=== PATIENT | male | born 1975 | race Hispanic/Latino ===

== ENCOUNTER 2025-04-14 16:11 | Observation (INO) | payer BC ==
[~2025-04-14] VITALS: Ht 175.3 cm; Wt 83.6 kg
--- NOTE | 2025-04-14 16:25 | ERN ---
ED Note History of Present Illness Stated Complaint: CONTINUOUS FEVER, DISORIENTED, RT SIDE SKIN BURNIN Chief Complaint: Skin Rash/Abscess Time Seen by MD: 16:12 Dictation: PATIENT IS A 50-YEAR-OLD MALE HERE WITH COMPLAINTS OF HAVING A LOW-GRADE FEVER ONSET SUNDAY WITH ABDOMINAL PAIN. STATES THE PAIN WAS PERIUMBILICAL HE HAD NAUSEA NO VOMITING. NO CHANGE IN URINATION. HE STATES HE IS NOW COMPLAINING OF A BURNING SENSATION TO HIS BILATERAL LOWER EXTREMITIES THAT IS A SENDING UPWARDS. TO THE RIGHT SIDE. STATES HE IS NO LONGER HAVING ANY ABDOMINAL PAIN. STATES HE HAS HAD THREE DIFFERENT MEDICAL VISITS THE 1ST VISIT WAS TO AN URGENT CARE THIS WEEKEND AND WE WILL SWABBED AND TOLD EVERYTHING WAS NEGATIVE. SECOND VISIT A TELE HEALTH VISIT YESTERDAY WHICH WAS NOT CONCLUSIVE. THE 3RD VISIT WAS TO A PRIMARY CARE DOCTOR EARLIER TODAY WHO DID A CBC AND TOLD HIM THAT IT WAS NOT BACTERIAL, THAT IT WAS VIRAL AND IF HE FELT WORSE TO GO TO THE EMERGENCY ROOM. STATES HE HAS HYPERTENSION AND DIABETES STATES HIS A1C IS 5.5. PATIENT DOES STATES THE PHYSICIAN TODAY GAVE HIM A SHOT OF TORADOL FOR THE BURNING WHICH HELPED BRING VERY BRIEFLY Allergies: Coded Allergies: No Known Drug Allergies (Unverified Allergy, Unknown, 04/14/25) Past Medical History Past Medical History: Diabetes-Type II, High Cholesterol Surgical History: None RN Note Reviewed/Agreed w/PFSH: Yes Review of System Dictation CONSTITUTIONAL: NEGATIVE EXCEPT FOR HPI HEAD/FACE: NEGATIVE EXCEPT FOR HPI EENT: NEGATIVE EXCEPT FOR HPI RESPIRATORY: NEGATIVE EXCEPT FOR HPI GASTROINTESTINAL/ABDOMINAL: NEGATIVE EXCEPT FOR HPI GENITOURINARY: NEGATIVE EXCEPT FOR HPI MUSCULOSKELETAL: NEGATIVE EXCEPT FOR HPI INTEGUMENTARY: NEGATIVE EXCEPT FOR HPI BURNING SENSATION TO SKIN BILATERALLY L OWER EXTREMITIES ASCENDING TO THORAX NEUROLOGICAL/PSYCH: NEGATIVE EXCEPT FOR HPI HEMATOLOGIC/LYMPHATIC: NEGATIVE EXCEPT FOR HPI ALL SYSTEMS NEGATIVE, EXCEPT NOTED ABOVE. 13 POINT REVIEW OF SYSTEMS ASSESSED AND ALL NEGATIVE EXCEPT FOR ABOVE. Initial Vital Sign VS Vital Signs Date Time Temp Pulse Resp B/P (MAP) Pulse Ox O2 Delivery O2 Flow Rate FiO2 04/14/25 16:14 97.9 98 16 108/70 100 Room Air 0 04/14/25 17:01 21 Physical Exam Dictation VITAL SIGNS REVIEWED GENERAL APPEARANCE: ALERT, ORIENTED X 3, NO ACUTE DISTRESS, WELL DEVELOPED, NOURISHED. HEAD AND FACE: NON-TRAUMATIC. EYES: PERRL, PINK CONJUNCTIVAS, EYELID NO TRAUMA, ANTERIOR CHAMBER WITH ARCUS SENILIS. EARS: PINNAS INTACT AND NO SIGNS OF TRAUMA OR ERYTHEMA EAR CANALS CLEAR AND NO DISCHARGE TM NO ERYTHEMA NOSE: NO DISCHARGE, NO BLEEDING. OROPHARYNX: MOUTH NORMAL, TONGUE PINK, PHARYNX CLEAR,NO ERYTHEMA, TONSILS NO EXUDATES, NO ABSCESSES NOTED, MUCOUS MEMBRANE MOIST NECK: SUPPLE, NON-TENDER, NO THYROMEGALY, NO MASSES, NO JVD, NO BRUITS BREAST:DEFERRED CHEST:NO TENDERNESS, NO CREPITUS, NO PARADOXICAL MOVEMENT, NO RETRACTIONS LUNGS:CLEAR, WELL-VENTILATED, SYMMETRIC, NO RALES, NO WHEEZING, NO RHONCHI, NO STRIDOR, GOOD BREATH SOUNDS BILATERALLY HEART: REGULAR RATE, REGULAR RHYTHM, NO MURMUR, NO GALLOPS VASCULAR: NO PERIPHERAL EDEMA, ABDOMEN: SOFT, POSITIVE BOWEL SOUNDS, NONDISTENDED, NO GUARDING, NONTENDER, NO REBOUND, NO MASSES NO HEPATOMEGALY, NO SPLENOMEGALY, NO WILLS'S SIGN, NO HERNIAS. RECTAL: DEFERRED GENITAL: DEFERRED NEUROLOGICAL: NORMAL SPEECH, MOTOR FUNCTION INTACT, SENSORY FUNCTION INTACT NIH IS 0. PATIENT HAS INTACT SENSATION AND PROPRIOCEPTION BILATERALLY. STATES HE FEELS LIKE HIS SKIN IS BURNING LIKE A SUNBURN FROM HIS CHEST DOWN. MUSCULOSKELETAL: NECK NONTENDER, FULL RANGE OF MOTION, BACK NONTENDER, FULL RANGE OF MOTION, EXTREMITIES: NONTENDER, FULL RANGE OF MOTION SKIN: COLOR PINK, DRY, NO TURGOR, NO RASH, NO LACERATIONS, NO ABRASIONS, NO CONT USIONS. NO RASHES FOUND LYMPHATIC: DEFERRED Results (Laboratory/Radiology) Laboratory/Radiology Laboratory Tests Test 04/14/25 16:48 04/14/25 16:56 White Blood Count 7.0 K/uL (4.8-10.8) Red Blood Count 3.47 MIL/uL (4.50-6.20) L Hemoglobin 11.0 g/dL (14.0-18.0) L Hematocrit 31.0 % (42-54) L Mean Corpuscular Volume 89.3 fL (79-99) Mean Corpuscular Hemoglobin 31.7 pg (27.0-33.0) Mean Corpuscular Hemoglobin Concent 35.5 g/dL (32.0-36.0) Red Cell Distribution Width 12.3 % (11.0-15.5) Platelet Count 170 K/uL (130-400) Mean Platelet Volume 9.4 fL (7.5-10.5) Immature Granulocyte % (Auto) 0.3 % (0-1) Neutrophils (%) (Auto) 79.6 % (40.0-77.0) H Lymphocytes (%) (Auto) 10.9 % (21.0-51.0) L Monocytes (%) (Auto) 8.8 % (3.0-13.0) Eosinophils (%) (Auto) 0.3 % (0.0-8.0) Basophils (%) (Auto) 0.1 % (0.0-5.0) Neutrophils # (Auto) 5.5 K/uL (1.8-7.7) Lymphocytes # (Auto) 0.8 K/uL (1.0-4.8) L Monocytes # (Auto) 0.6 K/uL (0.1-1.0) Eosinophils # (Auto) 0.02 K/uL (0.00-0.70) Basophils # (Auto) 0.01 K/uL (0.00-0.20) Absolute Immature Granulocyte (auto 0.02 K/uL (0-1) Nucleated Red Blood Cells 0.0 % (0.0-0.19) Sodium Level 136 mmol/L (136-145) Potassium Level 3.6 mmol/L (3.5-5.1) Chloride Level 100 mmol/L (101-111) L Carbon Dioxide Level 29 mmol/L (21-32) Blood Urea Nitrogen 15 mg/dL (7-18) Creatinine 1.0 mg/dL (0.5-1.3) Glomerular Filtration Rate Calc 92 mL/min (>90) Random Glucose 114 mg/dL (70-105) H Lactic Acid Level 1.3 mmol/L (0.8-2.5) Total Calcium 8.5 mg/dL (8.5-10.1) Total Creatine Kinase 674 U/L (21-232) *H C-Reactive Protein, Quantitative 52.50 mg/L (0.5-3.0) H Urine Color LIGHT-YELLOW (YELLOW) Urine Appearance CLEAR (CLEAR) Urine pH 6.0 (5.0-8.0) Urine Specific [place] 1.015 (1.001-1.031) Urine Protein NEGATIVE mg/dL (NEGATIVE) Urine Glucose (UA) NEGATIVE mg/dL (NEGATIVE) Urine Ketones NEGATIVE mg/dL (NEGATIVE) Urine Occult Blood NEGATIVE (NEGATIVE) Urine Nitrate NEGATIVE (NEGATIVE) Urine Bilirubin NEGATIVE mg/dL (NEGATIVE) Urine Urobilinogen 0.2 mg/dL (0.2-1.0) Urine Leukocyte Esterase NEGATIVE Ulices/uL Labs Reviewed?: Yes EKG: (+) NSR EKG Comment: EKG NORMAL SINUS RHYTHM/HEART RATE 85/AXIS NORMAL/NO ECTOPY ED Course ED Course Orders Procedure Category Date Status Time Crp Quantitative LAB 04/14/25 Complete 16:16 Creatine Kinase, Total LAB 04/14/25 Complete 16:16 Cbc With Differential LAB 04/14/25 Complete 16:16 Urinalysis Profile LAB 04/14/25 Complete 16:16 Basic Metabolic Panel LAB 04/14/25 Complete 16:16 Blood Cult JOSE 04/14/25 In Process 16:22 Lactic Acid LAB 04/14/25 Complete 16:22 12 Lead Ekg Tracing- EKG 04/14/25 Complete Technical 16:39 [place] Prov. Neuro CONPHYSVC 04/14/25 Transmitted Consult 16:52 Saline Lock Iv CPOE 04/14/25 Transmitted 17:29 0.9%Nacl 1000ml (Ns PHA 04/14/25 Complete 1000ml) 17:30 Methylprednisolone PHA 04/14/25 Complete Succ 125mg (Solu-Medr 17:30 Febrile Agglutinins LAB 04/14/25 In Process Panel 18:24 Hepatic Function Panel LAB 04/14/25 In Process 19:17 Current Medications Medications (Trade) Dose Ordered Sig/Luis Route PRN Reason Start Time Stop Time Status Last Admin Dose Admin Methylprednisolone Sodium Succinate (Solu-medROL 125MG) 125 mg ONCE ONCE IVP 04/14/25 17:30 04/14/25 17:39 DC 04/14/25 17:41 Sodium Chloride 1,000 ml @ 0 mls/hr ONCE ONCE IV 04/14/25 17:30 04/14/25 17:39 DC 04/14/25 17:41 Vital Signs Date Time Temp Pulse Resp B/P (MAP) Pulse Ox O2 Delivery O2 Flow Rate FiO2 04/14/25 18:28 98.2 72 18 113/68 100 Room Air* 0 21 04/14/25 17:45 97.9 83 18 102/59 100 Room Air* 0 21 04/14/25 17:01 83 18 97/60 98 Room Air* 0 21 04/14/25 16:14 97.9 98 16 108/70 100 Room Air 0 1645/SPOKE WITH REGARDING PATIENT AND FINDINGS OF NEUROLOGIC EXAM. WE WILL FOLLOW UP WITH NEURO SOC FOR FURTHER EVALUATION 1700/SPOKE WITH , TELE NEUROLOGIST. HE WILL SEE THE PATIENT IN APPROXIMATE 10 MINUTES HOWEVER SAYS PATIENT WILL NEED MRI OF THE THORACIC LUMBAR SPINE WITH AND WITHOUT CONTRAST. STATES GUILLAIN-BARRE IS LESS LIKELY WE WILL GIVE US FURTHER INPUT ONCE HE EVALUATES PATIENT. He also states that lumbar puncture would be possibly indicated in the future also place patient on viral medication 1937/spoke with Ale JARAMILLO hospitalist reviewed labs interventions to include my discussion with tele radiologist she agreed to admit patient. Spoke with patient and he agreed to be admitted. Medical Decision Making MDM MDM: Differential diagnosis: Viral syndrome/febrile illness, rhabdomyolysis, ACS/AMI/electrolyte imbalance/dehydration/ Rationale: Tests considered and ordered secondary to shared decision making include: labs, ECG and radiology Previous outside records reviewed: Old ER visits. Risk of complication and/or morbidity or mortality of patient management: Mild Medications-Per medication reconciliation Need for hospitalization: Patient does meet criteria for hospitalization. Patient will need follow up on febrile agglutinins rhabdomyolysis fluid resusci tation possible I&D consultation Need for emergency major/minor surgery: No There are no social concerns with this patient. Prescription drug management Prescriptions will include symptomatic care Patient's prior external medical records from other ER visits were reviewed by me as indicated. Prior testing and results from previous visits were reviewed. Prior tests were taken into account with medical decision making and resource utilization, independent historian/historians were used to obtain complete medical history. I independently interpreted the test that were performed, results were reviewed by me and considered findings on radiology if ordered. Medical management and examination interpretation discussions were had by me with other qualified healthcare professionals as indicated for the patient's care. DX & DISP Disposition: Inpatient Decision to Admit Time: 19:40 Departure Impression: Primary Impression: Acute febrile illness Additional Impressions: Dysesthesia affecting both sides of body, Rhabdomyolysis, Hyperglycemia Condition: Stable Referrals: SELF,REFERRAL (PCP) Time of Disposition: 19:40 I have reviewed the case, and I agree with, Diagnosis and Plan REY ADAMS NP 3, 2025 16:25
--- NOTE | 2025-04-14 16:52 | EKG ---
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
[2025-04-14 17:04] LABS: BASOPHILS # (AUTO) 0.01 K/uL (0.00-0.20); BASOPHILS % (AUTO) 0.1 % (0.0-5.0); EOSINOPHILS # (AUTO) 0.02 K/uL (0.00-0.70); EOSINOPHILS % (AUTO) 0.3 % (0.0-8.0); IMMATURE GRANULOCYTE ABSOLUTE 0.02 K/uL (0-1); LYMPHOCYTES # (AUTO) 0.8 K/uL (1.0-4.8); LYMPHOCYTES % (AUTO) 10.9 % (21.0-51.0); MEAN CORPUSCULAR HEMOGLOBIN 31.7 pg (27.0-33.0); MEAN CORPUSCULAR HGB CONC 35.5 g/dL (32.0-36.0); MEAN CORPUSCULAR VOLUME 89.3 fL (79-99); MONOCYTES # (AUTO) 0.6 K/uL (0.1-1.0); MONOCYTES % (AUTO) 8.8 % (3.0-13.0); NEUTROPHILS # (AUTO) 5.5 K/uL (1.8-7.7); NEUTROPHILS % (AUTO) 79.6 % (40.0-77.0); PLATELET COUNT (AUTO) 170 K/uL (130-400); RED BLOOD CELL COUNT(AUTO) 3.47 MIL/uL (4.50-6.20); RED CELL DISTRIBUTION WIDTH 12.3 % (11.0-15.5)
[2025-04-14 17:09] LABS: POTASSIUM 3.6 mmol/L (3.5-5.1)
[2025-04-14 17:13] LABS: APPEARANCE,URINE CLEAR (CLEAR); BILIRUBIN,URINE NEGATIVE (NEGATIVE); COLOR,URINE LIGHT-YELLOW (YELLOW); GLUCOSE, URINE (UA) NEGATIVE (NEGATIVE); KETONES,URINE NEGATIVE (NEGATIVE); LEUKOCYTE ESTERASE ,URINE NEGATIVE Leu/uL (NEGATIVE); NITRATE,URINE NEGATIVE (NEGATIVE); OCCULT BLOOD,URINE NEGATIVE (NEGATIVE); PROTEIN,URINE NEGATIVE (NEGATIVE); UROBILINOGEN,URINE 0.2 mg/dL (0.2-1.0)
[2025-04-14 17:16] LABS: ADD UA MICROSCOPIC NO
[2025-04-14] MEDS: Solu-medROL 125MG VIAL IVP ONE (17:41)
[2025-04-14] MEDS: 0.9%NACL 1000ML 1,000 ML IV ONE (17:41)
--- NOTE | 2025-04-14 18:32 | BSKYNEURO ---
[facility] Procedure Note [facility] Consult Consult [facility] Note # Demographics Consult Type: General Neurology Patient Location: Emergency Room First Name: JUDY CARTWRIGHT Last Name: JENNIFER Date of : 1975 Age: 50 Gender: Male Facility: [facility] Time of Initial Page (Central Time): 04/14/2025 16:49 Time of Return Call (Central Time): 04/14/2025 16:50 # HPI History: fever, chills, abd pain last week- pain in band around belly to back - starting around bellybutton. then feeling sunburn sensation in abd from nipple line down to thighs. Fevers, burning/numbness feeling.. No incontinence. # Scores Level of Consciousness 1a: [0] = Alert; keenly responsive LOC Questions 1b: [0] = Answers both questions correctly LOC Commands 1c: [0] = Performs both tasks correctly Best Gaze 2: [0] = Normal Visual 3: [0] = No visual loss Facial Palsy 4: [0] = Normal symmetrical movements Motor Arm Left 5a: [0] = No drift Motor Arm Right 5b: [0] = No drift Motor Leg Left 6a: [0] = No drift Motor Leg Right 6b: [0] = No drift Limb Ataxia 7: [0] = Absent Sensory 8: [1] = [id number] sensory loss Best Language 9: [0] = No aphasia Dysarthria 10: [0] = Normal Extinction and Inattention 11: [0] = No abnormality NIHSS Total: 1 # Exam Additional Neurologic Exam: no meningismus full rom in ankles # Assessment Impression: No weakness noted. given fevers and sensory level for numbness would consider roller picker infection or inflammation. acyclovir empiric roller picker coverage for now. MRI C/T/L wwo pending. LP after MRI. COnsider ABX coverage if any worsening although if this were bacterial cause would expect worse exam. # Plan Labs: - TSH Imaging: (urgency: routine): - MRI C spine - MRI T spine - MRI L spine Diagnostic Test: - Lumbar puncture: cell count, protein, glucose, gram stain, and culture Medication: acyclovir 10mg /kg iv tid Other: - If patient has any neurological deterioration please call me back immediately - I have discussed my recommendations with the referring provider # Logistics Attestation of consult completion: The patient is located at: [facility]. Facility staff participated in the visit. I performed this telemedicine visit from my offsite office utilizing interactive 2 way audio and visual telecommunication technology. Total time spent in telemedicine encounter: I spent 21 minutes reviewing clinical data and/or imaging, obtaining history, examining the patient, communicating with the onsite care team, and in preparation of this report. # Demographics First Name: JUDY CARTWRIGHT Last Name: JENNIFER Facility: [facility] Electronically signed at 04/14/2025 18:32 (Central Time) by Cain Gambino MD Neuro Consult Order placed for: Yes ROBERTA GAMBINO MD Apr 14, 2025 18:32
[2025-04-14 19:39] LABS: ALBUMIN 3.5 g/dL (3.5-5.0); BILIRUBIN,DIRECT 0.1 mg/dL (0.0-0.3); BILIRUBIN,TOTAL 0.4 mg/dL (0.2-1.0); TOTAL PROTEIN, SERUM 6.9 g/dL (6.0-8.3)
--- NOTE | 2025-04-14 19:57 | HP ---
[facility] HISTORY AND PHYSICAL Date of Service: Apr 14, 2025 Time of Service: 19:57 Attending/supervising physician: Dr. Appiah and Dr. Richmond Alarcon HISTORY OF PRESENT ILLNESS: Mr. Dsouza is a 50-year-old male with a history of a DM, HTN, and HDL who presented to [facility] for evaluation of low-grade fever, chills, abdominal pain and nausea onset Sunday of last week. The patient reported he had periumbilical abdominal pain, but that has gone away. The pain was spent around the abdomen to the back, starting around the belly button. The patient reported that he is now having burning/sunburn/numbness sensation ascending upward from lower extremity to the abdomen to nipple line. The patient reported he initially was seen at urgent care this weekend, was swab, and was told everything was negative. The 2nd visit was two at tele health visit yesterday which was not conclusive. The 3rd visit was two the primary care doctor earlier today who did a CBC and told him that it was not bacterial, that it was viral, and if he fell worse to go to the emergency room. Patient reported that his PCP today gave him a shot of Toradol for the burning which helped bring very little relief. He reports that his last A1c was 5.5. The patient denied vomiting, incontinence, or changing urination, chest pain, shortness of breath, WBCs WNL. Remarkable lab results: CK 674, C-reactive protein 52.5 Hemoglobin 11.0, hematocrit 31.0, RBC 3.49, neut % 79.6, lymph% 10.9, Lymph # 0.8. Chloride 100, GFR 92, glucose 114, EKG: Sinus rhythm, HR 85 bpm. No checks x-ray, swabs to review. ED administered NS 1 L bolus and Solu-Medrol 125. ED consulted Dr. Pieter Hubbard, neurologist from [facility] neuro consult. Neurology we gave him an NIH of one for mild to moderate sensory loss. Recommendations were given the fever and sensory level of numbness would consider STRATEGY DIRECTOR infection or inflammation. Recommends acyclovir empiric STRATEGY DIRECTOR coverage for now. MRI C/T/L w/wo pending. LP after MRI. Consider antibiotic coverage if any worsening. ED provider request patient be admitted with the diagnosis of acute febrile illness, dysesthesia affecting both sides of the body, rhabdomyolysis, and hyperglycemia. I assessed the patient at bedside in room number ED 13. The was at bedside. The patient's breathing was even, unlabored, in no distress, appeared comfortable. The patient is oriented times four, no neurological deficits noted. The patient reports that he has been over exerting himself with moving things around. He reports that the Solu-Medrol given in ED helped with the symptoms. I informed the patient and significant other of labs, diagnostics, and plan of care. I answered their multiple questions. They verbalized understanding and are in agreement with the plan. Plan and assessment are listed below. REVIEW OF SYSTEMS 12-point ROS reviewed with the patient. All pertinent positives mentioned above. Otherwise negative, noncontributory, non-pertinent. PAST MEDICAL HISTORY: As mentioned above PAST SURGICAL HISTORY: None PAST SOCIAL HISTORY: Denied alcohol, tobacco, illicit drug use. FAMILY HISTORY: Noncontributory Coded Allergies: No Known Drug Allergies (Unverified Allergy, Unknown, 04/14/25) PHYSICAL EXAM GENERAL APPEARANCE: The patient is awake, alert, and oriented, in no acute cardiopulmonary distress. NEUROLOGICAL: Cranial nerves II-XII grossly intact. Motor is 5/5 in bilateral upper and lower extremities proximal to distal. No sensory deficits. HEENT: Face is symmetric. Pupils are equal and reactive. Extraocular movements are intact. NECK: Supple. No JVD. No thyromegaly. No submental, submandibular, pre- /postauricular, occipital or supraclavicular lymphadenopathy. CHEST: Normal chest expansion. No Telemetry. LUNGS: Absence of any rales, rhonchi or any wheezing. CARDIOVASCULAR: Regular. S1 and S2 normal. No appreciable rubs, murmurs or gallops. ABDOMEN: Soft, nontender, and nondistended. There is no rebound, voluntary guarding, or rigidity. : Deferred. No Urena. EXTREMITIES: Non-edematous and not cyanotic. No clubbing. Good capillary refill. SKIN: No skin breakdown. Vital Sign (Last 24 Hours) 04/14/25 19:52 Temp 98.1 Pulse 74 Resp 18 B/P (MAP) 116/75 Pulse Ox 96 O2 Delivery Room Air* O2 Flow Rate 0 FiO2 21 LABS: Laboratory: Test 04/14/25 19:15 04/14/25 16:56 04/14/25 16:48 Range/Units Total Bilirubin 0.4 0.2-1.0 mg/dL Direct Bilirubin 0.1 0.0-0.3 mg/dL Aspartate Amino Transf (AST/SGOT) 33 10-37 U/L Alanine Aminotransferase (ALT/SGPT) 50 12-78 U/L Alkaline Phosphatase 53 50-136 U/L Total Protein 6.9 6.0-8.3 g/dL Albumin 3.5 3.5-5.0 g/dL Urine Color LIGHT-YELLOW YELLOW Urine Appearance CLEAR CLEAR Urine pH 6.0 5.0-8.0 Urine Specific [place] 1.015 1.001-1.031 Urine Protein NEGATIVE NEGATIVE mg/dL Urine Glucose (UA) NEGATIVE NEGATIVE mg/dL Urine Ketones NEGATIVE NEGATIVE mg/dL Urine Occult Blood NEGATIVE NEGATIVE Urine Nitrate NEGATIVE NEGATIVE Urine Bilirubin NEGATIVE NEGATIVE mg/dL Urine Urobilinogen 0.2 0.2-1.0 mg/dL Urine Leukocyte Esterase NEGATIVE NEGATIVE Ulices/uL White Blood Count 7.0 4.8-10.8 K/uL Red Blood Count 3.47 L 4.50-6.20 MIL/uL Hemoglobin 11.0 L 14.0-18.0 g/dL Hematocrit 31.0 L 42-54 % Mean Corpuscular Volume 89.3 79-99 fL Mean Corpuscular Hemoglobin 31.7 27.0-33.0 pg Mean Corpuscular Hemoglobin Concent 35.5 32.0-36.0 g/dL Red Cell Distribution Width 12.3 11.0-15.5 % Platelet Count 170 130-400 K/uL Mean Platelet Volume 9.4 7.5-10.5 fL Immature Granulocyte % (Auto) 0.3 0-1 % Neutrophils (%) (Auto) 79.6 H 40.0-77.0 % Lymphocytes (%) (Auto) 10.9 L 21.0-51.0 % Monocytes (%) (Auto) 8.8 3.0-13.0 % Eosinophils (%) (Auto) 0.3 0.0-8.0 % Basophils (%) (Auto) 0.1 0.0-5.0 % Neutrophils # (Auto) 5.5 1.8-7.7 K/uL Lymphocytes # (Auto) 0.8 L 1.0-4.8 K/uL Monocytes # (Auto) 0.6 0.1-1.0 K/uL Eosinophils # (Auto) 0.02 0.00-0.70 K/uL Basophils # (Auto) 0.01 0.00-0.20 K/uL Absolute Immature Granulocyte (auto 0.02 0-1 K/uL Nucleated Red Blood Cells 0.0 0.0-0.19 % Sodium Level 136 136-145 mmol/L Potassium Level 3.6 3.5-5.1 mmol/L Chloride Level 100 L 101-111 mmol/L Carbon Dioxide Level 29 21-32 mmol/L Blood Urea Nitrogen 15 7-18 mg/dL Creatinine 1.0 0.5-1.3 mg/dL Glomerular Filtration Rate Calc 92 >90 mL/min Random Glucose 114 H 70-105 mg/dL Lactic Acid Level 1.3 0.8-2.5 mmol/L Total Calcium 8.5 8.5-10.1 mg/dL Total Creatine Kinase 674 *H 21-232 U/L C-Reactive Protein, Quantitative 52.50 H 0.5-3.0 mg/L DIAGNOSTICS / RADIOLOGY: [ ] ASSESSMENT: Acute febrile illness, POA, of unknown origin Dysesthesia affecting both sides of body, POA Sensory level of numbness, POA Rhabdomyolysis, POA Elevated neut %, lymph%, Lymph #, POA, rule out bacterial and viral infection, inflammation, blood disorder, autoimmune conditions Elevated C-reactive protein Anemia Hypochloremia Acute kidney injury, GFR 92 Diabetes mellitus with hyperglycemia PLAN: -Admit to medical floor with continuous telemetry monitoring. -Start acyclovir empiric for STRATEGY DIRECTOR coverage for now, as recommended by Tele Neurology -Start doxycycline 100 mg IV b.i.d. empiric coverage. -Start LR at 200 mL an hour. (ED administered 1 L NS) -Start Decadron 4 mg IV daily. (ED administered [id number] mg IV x1 dose) -Atorvastatin 40 mg p.o. daily. -Obtain chest x-ray, CT abdomen and pelvis without contrast, lumbar spine x-ray, influenza, COVID, strep, and MRSA swabs. -MRI C/T/L w/wo pending for am. -Echo complete to be done in am. -Possible LP after MRI as recommended by Neurology, will defer this to a.m. providers. -Neurological checks every 4 hours and as needed. -Consult neurology in a.m. -Consult infection disease in am. -Follow blood cultures, WBCs, and febrile agglutinin panel. -Monitor for any fevers. Antibiotic therapy tailored to culture results. De- escalate antibiotics when appropriate -Blood pressure checks every 4 hours and as needed. -Hold home medication Mounjaro. -Glucometer checks before meals and at bedtime with regular insulin sliding scale as needed -Education on diabetic/low fat diet. -AM labs: CBC, CMP, Mag, phos, TSH, A1c, CK, ERENDIRA, ESR, folic acid, vitamin B12. -Monitor renal and liver function. -Monitor electrolytes and treat accordingly. -GI and DVT prophylaxis: Pepcid IV and Lovenox. -Reconcile home medications once available. -Further orders upon hospitalization course. ADVANCED CARE PLANNING 1. Which of the following were discussed? Hospice Care - No Therapeutic options - Yes Advance Directives - Yes Other discussions - 2. Discussed with who? Patient 3. Voluntary nature of this service was explained to the patient? Yes 4. Amount of time spent - __ Over 45 minutes 5. Reviewed by Physician? (if this service was performed by NPP) Yes ATTESTATION BY PHYSICIAN I have seen and examined the patient. I reviewed the documentation, medical decision making, and treatment plan as noted by the mid-level provider above. I agree with the findings and plan of care. JOHANNE MUKHERJEE [facility] Apr 14, 2025 19:57
[2025-04-14] MEDS ORDERED: acetaMINOPHEN 325 MG TAB PO PRN (20:30)
[2025-04-14] MEDS ORDERED: TEMAZepam 15 MG CAPSULE PO PRN (20:30)
[2025-04-14] MEDS ORDERED: doCUSate SODIUM 100 MG CAP PO PRN (20:30)
[2025-04-14] MEDS ORDERED: acetaMINOPHEN 650 MG SUPPOSITORY RC PRN (20:30)
[2025-04-14] MEDS ORDERED: ondanSETRON 4MG INJ IVP PRN (20:30)
[2025-04-14] MEDS ORDERED: LAbetaLOL 20MG SYG IV PRN (20:30)
[2025-04-14] MEDS ORDERED: LACTULOSE 20 GM/30 ML UDCUP PO PRN (20:30)
[2025-04-14] MEDS: INSULIN humuLIN R 100 UNIT/ML 3ML SQ SCH (21:00)
[2025-04-14 21:04] LABS: AMPHET/METH SCREEN,URINE NEGATIVE (NEGATIVE); BARBITURATE SCREEN, URINE NEGATIVE (NEGATIVE); BENZODIAZEPINES SCREEN,URINE NEGATIVE (NEGATIVE); CANNABINOID SCREEN,URINE NEGATIVE (NEGATIVE); COCAINE SCREEN,URINE NEGATIVE (NEGATIVE); OPIATE SCREEN,URINE NEGATIVE (NEGATIVE); PHENCYCLIDINE SCREEN,URINE NEGATIVE (NEGATIVE)
[2025-04-14] MEDS ORDERED: PHARMACY COMMUNICATION MISC SCH (21:15)
[2025-04-14] MEDS: LACTATED RINGERS 1000ML 1,000 ML IV SCH (22:14)
[2025-04-14] MEDS: NACL 0.9% IV SCH (22:15)
[2025-04-14] MEDS: ACYCLOVIR IV SCH (22:15)
[2025-04-14] MEDS: FAMOTIDINE 20MG TAB PO SCH (22:15)
[2025-04-14] MEDS ORDERED: GLUCAGON 1MG KIT 1 MG ML IM PRN (23:00)
[2025-04-14] MEDS ORDERED: PoTASSium chloRIDE 20MEQ/100ML 100 ML IV PRN (23:00)
[2025-04-14] MEDS ORDERED: PoTASSium chloRIDE 20MEQ ER 20 MEQ ERTAB PO PRN (23:00)
[2025-04-14] MEDS ORDERED: MAGNESIUM 2GM PREMIX 50ML 50 ML IV PRN (23:00)
[2025-04-14] MEDS ORDERED: DEXTROSE 50%-WATER 50 ML DISP.SYRIN IV PRN (23:00)
[2025-04-14] MEDS ORDERED: PoTASSium chl 10% ELIXIR 20MEQ 20 MEQ/15 ML UDCUP PO PRN (23:00)
[2025-04-14 23:08] LABS: SARS-CoV-2, RNA, NAAT NEGATIVE SARS CoV-2 (NEGATIVE)
[2025-04-14 23:14] LABS: INFLUENZA TYPE A Negative For Type A (NEGATIVE); INFLUENZA TYPE B Negative For Type B (NEGATIVE)
[2025-04-14 23:23] LABS: RAPID GROUP A STREP negative (NEGATIVE)
[2025-04-14] MEDS: DOXYCYCLINE 100MG+NS 250ML 250 ML IV SCH (23:42)
--- NOTE | 2025-04-14 23:52 | NUR ---
REPORT GIVEN TO ANH ESPARZA
[2025-04-14] MEDS ORDERED: ATOR20TA65 PO (23:58)
[2025-04-14] MEDS ORDERED: TIRZ10PE SQ (23:58)
[2025-04-15] VITALS (8 sets, daily range): BP systolic 92–115; BP diastolic 58–78; PULSE 66–91; RESP 16–20; TEMP 97.6–98.2; O2SAT 97–99
--- NOTE | 2025-04-15 01:03 | HMCIMG ---
CT ABDOMEN/PELVIS W/O CONTRAST HISTORY: Abdominal pain COMPARISON: None TECHNIQUE: Multiple sequential axial images of the abdomen and pelvis were obtained from the dome of the diaphragm through symphysis pubis. Patient was not given contrast through intravenous route. Oral contrast was not given. FINDINGS: No pleural effusion is seen bilaterally. There is no evidence of parenchymal disease or pulmonary nodule of the visualized lower lungs. Degenerative changes of the thoracolumbar spine are present. There are mild degenerative changes with spondylosis. The heart is not enlarged. The liver, spleen, adrenal glands and pancreas are unremarkable. There is no evidence of hydronephrosis bilaterally. No evidence of renal stone is seen. Fecal material is seen in the colon. There are normal size retroperitoneal and mesenteric lymph nodes. No ascites is seen. No CT evidence of acute appendicitis is seen. Pelvic sidewalls are symmetric bilaterally. Bladder is well distended without wall thickening. IMPRESSION: 1. Fecal material is seen in the colon. Gallbladder is distended. There is clinical suspicion for cholecystitis or cystitis, urinalysis correlation will be helpful. CT was performed with one or more following dose reduction techniques: automated exposure control, adjustment of the mA and kv according to patient's size, or use of a iterative reconstruction technique.
[2025-04-15 04:20] LABS: MEAN CORPUSCULAR HEMOGLOBIN 31.4 pg (27.0-33.0); MEAN CORPUSCULAR HGB CONC 34.6 g/dL (32.0-36.0); MEAN CORPUSCULAR VOLUME 90.9 fL (79-99); RED BLOOD CELL COUNT(AUTO) 3.85 MIL/uL (4.50-6.20); RED CELL DISTRIBUTION WIDTH 12.1 % (11.0-15.5); WHITE BLOOD COUNT (AUTO) 5.7 K/uL (4.8-10.8)
[2025-04-15 05:05] LABS: ALBUMIN 3.4 g/dL (3.5-5.0); BILIRUBIN,TOTAL 0.4 mg/dL (0.2-1.0); CREATININE 0.9 mg/dL (0.5-1.3); MAGNESIUM 2.2 mg/dL (1.80-2.40); PHOSPHORUS 2.5 mg/dL (2.5-4.9); THYROID STIMULATING HORMONE 0.4 uIU/mL (0.36-3.74); TOTAL PROTEIN, SERUM 7.7 g/dL (6.0-8.3)
[2025-04-15 05:30] LABS: HEMOGLOBIN A1C 5.6 % (4.0-6.0)
[2025-04-15] MEDS: ACYCLOVIR IV SCH (05:41)
[2025-04-15] MEDS: NACL 0.9% IV SCH (05:41)
[2025-04-15] MEDS: dexaMETHasone SOD PHOSPHATE 4 MG/ML 1ML VIAL IV SCH (09:27)
[2025-04-15] MEDS: ENOXAPARIN SODIUM 40 MG/0.4 ML SYRINGE SQ SCH (09:28)
--- NOTE | 2025-04-15 11:07 | HMCIMG ---
EXAM: LUMBAR SPINE 2-3VWS REASON: paresthesia, dysesthesia. COMPARISON: None. TECHNIQUE: 3 views of the lumbar spine were obtained. FINDINGS: There is normal appearance of the lumbar vertebral bodies. Disc interspace heights are preserved. Alignment is normal. There are no visible fractures. Soft tissues appear unremarkable. IMPRESSION: 1. Normal lumbar spine.
--- NOTE | 2025-04-15 11:09 | HMCIMG ---
CHEST 1VW REASON: fever on unknown etiology COMPARISON: None. FINDINGS: Single view of the chest was obtained. Lungs are clear. Heart size is normal. There is no pulmonary vascular congestion. Mediastinum and bony thorax appear unremarkable. IMPRESSION: 1. Normal single view chest x-ray.
--- NOTE | 2025-04-15 11:19 | PN ---
[facility] PROGRESS NOTE Date of Service: Apr 15, 2025 Time of Service: 11:09 SUBJECTIVE: Mr. Dsouza is a 50-year-old male with a history of a DM, HTN, and HDL who presented to [facility] for evaluation of low-grade fever, chills, abdominal pain and nausea onset Sunday of last week. The patient reported he had periumbilical abdominal pain, but that has gone away. The pain was spent around the abdomen to the back, starting around the belly button. The patient reported that he is now having burning/sunburn/numbness sensation ascending upward from lower extremity to the abdomen to nipple line. The patient reported he initially was seen at urgent care this weekend, was swab, and was told everything was negative. The 2nd visit was two at tele health visit yesterday which was not conclusive. The 3rd visit was two the primary care doctor earlier today who did a CBC and told him that it was not bacterial, that it was viral, and if he fell worse to go to the emergency room. Patient reported that his PCP gave him a shot of Toradol for the burning which helped bring very little relief. He reported that his last A1c was 5.5. The patient denied vomiting, incontinence, or changing urination, chest pain, shortness of breath, WBCs WNL. Remarkable lab results: CK 674, C-reactive protein 52.5 Hemoglobin 11.0, hematocrit 31.0, RBC 3.49, neut % 79.6, lymph% 10.9, Lymph # 0.8. Chloride 100, GFR 92, glucose 114, EKG: Sinus rhythm, HR 85 bpm. No checks x-ray, swabs to review. ED administered NS 1 L bolus and Solu-Medrol 125. ED consulted Dr. Pieter Hubbard, neurologist from [facility] neuro consult. Neurology gave him an NIH of one for mild to moderate sensory loss. Recommendations were given the fever and sensory level of numbness would consider CONFERENCE AND EVENT ORGANISER infection or inflammation. Recommended acyclovir empiric CONFERENCE AND EVENT ORGANISER coverage for now. MRI C/T/L w/wo pending. LP after MRI. Consider antibiotic coverage if any worsening. ED provider requested patient be admitted with the diagnosis of acute febrile illness, dysesthesia affecting both sides of the body, rhabdomyolysis, and hyperglycemia. The patient evaluated at bedside in room number ED 13. The was at bedside. The patient's breathing was even, unlabored, in no distress, appeared comfortable. The patient oriented times four, no neurological deficits noted. The patient reported that he has been over exerting himself with moving things around. He reported that the Solu-Medrol given in ED helped with the symptoms. / the patient has been seen and examined, comfortably in bed, he is getting IV antibiotics at the time of my visit, alert oriented x3, he denies dizziness, no headache, no blurry vision, not neck pain, denies chest pain, denied shortness a breath, no nausea, no vomiting, no abdominal pain, no diarrhea, no constipation, no melena, no hematochezia, no hematemesis, no hematuria, no dysuria. the patient admitted to the medical floor, hemodynamically stable, afebrile, saturating normal on room air. CBC with normal WBC, hemoglobin 12.1, hematocrit 35.0, platelet count of 175. Sodium level 138, potassium 4.0, BUN of 13, creatinine 0.9, hemoglobin A1c 5.6, lactic acid 1.3, total CK 564. Toxicology screen negative. Urinalysis negative. Serology test negative. CT of the abdomen shows fecal material in the colon, gallbladder distended. Echocardiogram pending. Lumbar x-ray normal. HIDA scan and surgical consultation requested as the patient with distended gallbladder. Infectious disease consulted, we will follow input and recommendation. REVIEW OF SYSTEMS 12-point ROS reviewed with the patient. All pertinent positives mentioned above. Otherwise negative, noncontributory, non-pertinent. PHYSICAL EXAM GENERAL APPEARANCE: The patient is awake, alert, and oriented, in no acute cardiopulmonary distress. NEUROLOGICAL: Cranial nerves II-XII grossly intact. Motor is 5/5 in bilateral upper and lower extremities proximal to distal. No sensory deficits. HEENT: Face is symmetric. Pupils are equal and reactive. Extraocular movements are intact. NECK: Supple. No JVD. No thyromegaly. No submental, submandibular, pre- /postauricular, occipital or supraclavicular lymphadenopathy. CHEST: Normal chest expansion. No Telemetry. LUNGS: Absence of any rales, rhonchi or any wheezing. CARDIOVASCULAR: Regular. S1 and S2 normal. No appreciable rubs, murmurs or gallops. ABDOMEN: Soft, nontender, and nondistended. There is no rebound, voluntary guarding, or rigidity. : Deferred. No Urena. EXTREMITIES: Non-edematous and not cyanotic. No clubbing. Good capillary refill. SKIN: No skin breakdown. Vital Signs (last 8hr) Date Time Temp Pulse Resp B/P (MAP) Pulse Ox O2 Delivery O2 Flow Rate FiO2 04/15/25 07:58 98.2 91 16 108/65 97 Room Air 04/15/25 03:55 97.5 80 20 98/68 99 Room Air LABS: Laboratory: Test 04/15/25 10:34 04/15/25 03:44 04/14/25 22:38 04/14/25 19:15 Range/Units Whole Blood Glucose 125 H 70-110 MG/DL White Blood Count 5.7 4.8-10.8 K/uL Red Blood Count 3.85 L 4.50-6.20 MIL/uL Hemoglobin 12.1 L 14.0-18.0 g/dL Hematocrit 35.0 L 42-54 % Mean Corpuscular Volume 90.9 79-99 fL Mean Corpuscular Hemoglobin 31.4 27.0-33.0 pg Mean Corpuscular Hemoglobin Concent 34.6 32.0-36.0 g/dL Red Cell Distribution Width 12.1 11.0-15.5 % Platelet Count 175 130-400 K/uL Mean Platelet Volume 9.4 7.5-10.5 fL Nucleated Red Blood Cells 0.0 0.0-0.19 % Erythrocyte Sedimentation Rate 60 H 0-20 MM/HR Sodium Level 138 136-145 mmol/L Potassium Level 4.0 3.5-5.1 mmol/L Chloride Level 102 101-111 mmol/L Carbon Dioxide Level 30 21-32 mmol/L Blood Urea Nitrogen 13 7-18 mg/dL Creatinine 0.9 0.5-1.3 mg/dL Glomerular Filtration Rate Calc 104 >90 mL/min Random Glucose 134 H 70-105 mg/dL Hemoglobin A1c 5.6 4.0-6.0 % Estimated Average Glucose (eAG) 114 70-126 mg/dL Total Calcium 8.9 8.5-10.1 mg/dL Phosphorus Level 2.5 2.5-4.9 mg/dL Magnesium Level 2.20 1.80-2.40 mg/dL Total Bilirubin 0.4 0.2-1.0 mg/dL Aspartate Amino Transf (AST/SGOT) 35 10-37 U/L Alanine Aminotransferase (ALT/SGPT) 55 12-78 U/L Alkaline Phosphatase 52 50-136 U/L Total Creatine Kinase 564 *H 21-232 U/L Total Protein 7.7 6.0-8.3 g/dL Albumin 3.4 L 3.5-5.0 g/dL Vitamin B12 Level 1778 H 193-986 pg/mL Folic Acid (LAB) 17.30 2-20 ng/mL Thyroid Stimulating Hormone (TSH) 0.40 0.36-3.74 uIU/mL Influenza Type A Antigen Negative For Type A NEGATIVE Influenza Type B Antigen Negative For Type B NEGATIVE SARS-CoV-2, RNA, NAAT NEGATIVE SARS CoV-2 NEGATIVE Group A Streptococcus Rapid negative NEGATIVE Direct Bilirubin 0.1 0.0-0.3 mg/dL Troponin I High Sensitivity < 4 L 4-75 ng/L Test 04/14/25 16:56 04/14/25 16:48 04/14/25 16:15 Range/Units Urine Color LIGHT-YELLOW YELLOW Urine Appearance CLEAR CLEAR Urine pH 6.0 5.0-8.0 Urine Specific [place] 1.015 1.001-1.031 Urine Protein NEGATIVE NEGATIVE mg/dL Urine Glucose (UA) NEGATIVE NEGATIVE mg/dL Urine Ketones NEGATIVE NEGATIVE mg/dL Urine Occult Blood NEGATIVE NEGATIVE Urine Nitrate NEGATIVE NEGATIVE Urine Bilirubin NEGATIVE NEGATIVE mg/dL Urine Urobilinogen 0.2 0.2-1.0 mg/dL Urine Leukocyte Esterase NEGATIVE NEGATIVE Ulices/uL Urine Opiates Screen NEGATIVE NEGATIVE Urine Barbiturates Screen NEGATIVE NEGATIVE Urine Phencyclidine Screen NEGATIVE NEGATIVE Urine Amphetamines Screen NEGATIVE NEGATIVE Urine Benzodiazepines Screen NEGATIVE NEGATIVE Urine Cocaine Screen NEGATIVE NEGATIVE Urine Marijuana (THC) Screen NEGATIVE NEGATIVE Immature Granulocyte % (Auto) 0.3 0-1 % Neutrophils (%) (Auto) 79.6 H 40.0-77.0 % Lymphocytes (%) (Auto) 10.9 L 21.0-51.0 % Monocytes (%) (Auto) 8.8 3.0-13.0 % Eosinophils (%) (Auto) 0.3 0.0-8.0 % Basophils (%) (Auto) 0.1 0.0-5.0 % Neutrophils # (Auto) 5.5 1.8-7.7 K/uL Lymphocytes # (Auto) 0.8 L 1.0-4.8 K/uL Monocytes # (Auto) 0.6 0.1-1.0 K/uL Eosinophils # (Auto) 0.02 0.00-0.70 K/uL Basophils # (Auto) 0.01 0.00-0.20 K/uL Absolute Immature Granulocyte (auto 0.02 0-1 K/uL Lactic Acid Level 1.3 0.8-2.5 mmol/L C-Reactive Protein, Quantitative 52.50 H 0.5-3.0 mg/L Brucella Total Antibody Agglutin NEGATIVE NEGATIVE Paratyphoid A Antibody NEGATIVE NEGATIVE Paratyphoid B Antibody NEGATIVE NEGATIVE Proteus OX-19 Antibody 1:20 NEGATIVE Typhoid H Antibody NEGATIVE NEGATIVE Typhoid O Antibody NEGATIVE NEGATIVE Current Medications Medications (Trade) Dose Ordered Sig/Luis Route PRN Reason Start Time Stop Time Status Last Admin Dose Admin Acetaminophen (TYLenol 325MG TAB) 650 mg Q6H PRN PO FEVER/MILD PAIN LEVEL 1-3 04/14/25 20:30 05/14/25 20:29 Acetaminophen (TYLenol 650MG SUPPOSITORY) 650 mg Q6H PRN RC FEVER / MILD PAIN 1-3 IF NPO 04/14/25 20:30 05/14/25 20:29 Acyclovir Sodium 840 mg/Sodium Chloride 250 ml @ 250 mls/hr Q8H IV 04/15/25 06:00 05/14/25 21:59 04/15/25 05:41 250 MLS/HR Acyclovir Sodium 850 mg/Sodium Chloride 250 ml @ 250 mls/hr Q8H IV 04/14/25 22:00 04/15/25 05:26 DC 04/14/25 22:15 250 MLS/HR Dexamethasone Sodium Phosphate (dexaMETHasone 4MG/ML 1ML VIAL) 4 mg DAILY IV 04/15/25 09:00 05/15/25 08:59 04/15/25 09:27 4 MG Dextrose (D50w) 50 ml AD PRN IV HYPOGLYCEMIA PROTOCOL 04/14/25 23:00 05/14/25 22:59 Docusate Sodium (COLace 100MG CAP) 100 mg BID PRN PO CONSTIPATION 04/14/25 20:30 05/14/25 20:29 Doxycycline Hyclate 250 ml @ 125 mls/hr Q12H IV 04/14/25 23:00 04/24/25 22:59 04/14/25 23:42 125 MLS/HR Enoxaparin Sodium (Lovenox) 40 mg DAILY SQ 04/15/25 09:00 05/15/25 08:59 04/15/25 09:28 40 MG Famotidine (Pepcid 20mg Tab) 20 mg BID PO 04/14/25 21:00 05/14/25 20:59 04/15/25 09:27 20 MG Glucagon (Glucagon 1mg Kit) 1 mg AD PRN IM HYPOGLYCEMIA PROTOCOL 04/14/25 23:00 05/14/25 22:59 Insulin Human Regular (humuLIN R 100 UNIT/ML 3ML) INSULIN SLIDING SCAL... ACHS SQ 04/14/25 21:00 05/14/25 20:59 Labetalol HCl (TRANdate 20MG SYG) 10 mg Q2H PRN IV SBP GREATER THAN 160 04/14/25 20:30 05/14/25 20:29 Lactated Ringer's 1,000 ml @ 200 mls/hr Q5H IV 04/14/25 20:30 05/14/25 20:29 04/14/25 22:14 200 MLS/HR Lactulose (Constulose 20gm/ 30ml Udcup) 20 gm Q6H PRN PO CONSTIPATION 04/14/25 20:30 05/14/25 20:29 Magnesium Sulfate 50 ml @ 0 mls/hr PROTOCOL PRN IV MAGNESIUM PROTOCOL 04/14/25 23:00 05/14/25 22:59 Ondansetron HCl (zoFRAN 4MG INJ) 4 mg Q6H PRN IVP NAUSEA/VOMITING 04/14/25 20:30 05/14/25 20:29 Pharmacy Profile Note (Pharmacy Communication) 1 each STAT MISC 04/14/25 21:15 04/15/25 07:06 DC Potassium Chloride 100 ml @ 100 mls/hr AD PRN IV POTASSIUM PROTOCOL 04/14/25 23:00 05/14/25 22:59 Potassium Chloride (K-Dur/Klor-Con 20meq) 20 meq AD PRN PO POTASSIUM PROTOCOL 04/14/25 23:00 05/14/25 22:59 Potassium Chloride (KCl 10% Elixir 20meq/15ml) 20 meq AD PRN PO POTASSIUM PROTOCOL 04/14/25 23:00 05/14/25 22:59 Temazepam (restORIL 15 MG CAP) 15 mg HS PRN PO INSOMNIA/SLEEP 04/14/25 20:30 05/14/25 20:29 DIAGNOSTICS / RADIOLOGY: [ ] ASSESSMENT: Acute febrile illness, POA, of unknown origin Dysesthesia affecting both sides of body, POA Sensory level of numbness, POA Rhabdomyolysis, POA Elevated neut %, lymph%, Lymph #, POA, rule out bacterial and viral infection, inflammation, blood disorder, autoimmune conditions Elevated C-reactive protein Anemia Hypochloremia Acute kidney injury, GFR 92 Diabetes mellitus with hyperglycemia Distended gallbladder PLAN: -Admit to medical floor with continuous telemetry monitoring. -Started acyclovir empiric for CONFERENCE AND EVENT ORGANISER coverage for now, as recommended by Tele Neurology -Started doxycycline 100 mg IV b.i.d. empiric coverage. -Started LR at 200 mL an hour. (ED administered 1 L NS) -Started Decadron 4 mg IV daily. (ED administered Solu-Swdium067 mg IV x1 dose) -Atorvastatin 40 mg p.o. daily. -Obtain chest x-ray, CT abdomen and pelvis without contrast showed distended gallbladder, will consult surgery and order HIDA scan. - lumbar spine x-ray pending - influenza, COVID, strep, and MRSA swabs negative. -MRI C/T/L w/wo pending. -Echo complete pending. -Possible LP after MRI as recommended by Neurology -Neurological checks every 4 hours and as needed. -Consult infection disease in am. -Febrile agglutinin panel negative -Monitor for any fevers. Antibiotic therapy tailored to culture results. De- escalate antibiotics when appropriate -Blood pressure checks every 4 hours and as needed. -Hold home medication Mounjaro. -Glucometer checks before meals and at bedtime with regular insulin sliding scale as needed -Education on diabetic/low fat diet. -AM labs: CBC, CMP, Mag, phos, TSH, A1c, CK, ERENDIRA, ESR, folic acid, vitamin B12. -Monitor renal and liver function. -Monitor electrolytes and treat accordingly. -GI and DVT prophylaxis: Pepcid IV and Lovenox. -Further orders upon hospitalization course. Plan of action discussed, all questions answered. Total time spent greater than 35 minutes. GABRIELLE QUEZADA MD Apr 15, 2025 11:19
[2025-04-15] MEDS ORDERED: COMPOUND IV MISC 1 EACH IVSOLN MISC PRN (12:30)
--- NOTE | 2025-04-15 13:33 | NUR ---
DCP: HOME Pt currently lives with Soledad Dsouza [phone]. Pt does not have any insecurities with food, prison, and/or utilities. Pt does not have DME, home health, or provider services. Pt is able to complete ADLs independently. Pt states that he recently started going to [facility] in [place] for care. Pt uses [facility] for any RX needs. At [place] pt will go back home and will assist with transportation. Addendum: 04/15/25 at 1336 by ROSELINE NARVAEZ SS Amended: Links added.
--- NOTE | 2025-04-15 16:38 | HMCSR ---
APPROVED REPORT EXAM: Two-dimensional and M-mode echocardiogram with Doppler and color Doppler. INDICATION ICD: Eleveated CK, fever 2D Dimensions RVDd3.9 cmLVEF(%)60.5 (>50%)LVED Vol(simp.)120.0 mL IVSd1.1 (0.7-1.1cm)FS(%)32 %LVES Vol(simp.)53.0 mL LVDd4.4 (3.8-5.6cm)LA (2D)3.6 (1.6-4.0cm)LVEF(%, simp.)56 % PWd0.9 (0.7-1.1cm)Ao Root(2D)3.3 (2.0-3.7cm)LA ESV INDEX (BP)23.47 mL/m2 LVDs3.0 (2.5-4.0cm)LVOT diam2.3 (1.8-2.4cm) IVC diam1.5 cm Deformation Strain Apical 4-20.2 % Apical 2-16.7 % Apical 3-18.1 % Global Strain-18.3 % M-Mode Dimensions EPSS0.4 cm LA (MM)3.7 (1.6-4.0cm) Ao Root(MM)3.0 (2.0-3.7cm) Aortic Valve AoV Vmax1.2 m/Felicita Peak GR5.4 mmHgLVOT Vmax0.9 m/s AoV VTI0.3 mAo Mean GR3.0 mmHgLVOT VTI0.20 m DENZEL (VMAX)3.19 cm2AVA (VTI) 3.2 cm2 Mitral Valve MV E Vmax84.0 cm/sDECEL Nkqx032 ms MV A Vmax74.7 cm/sP 1/2 T54 ms E/A ratio1.1MVA (PHT)4.1 cm2 TDI E/E' Tncxfs23.6E/E' Lateral7.5 Medial E' Peak V7.26 cm/sLateral E' Peak V11.22 cm/s Pulmonary Valve PV Vmax0.8 m/sPV VTI0.19 mPV Mean GR1.5 mmHg PV Peak GR2.4 mmHg Tricuspid Valve TR Vmax2.0 m/sRVSP16.4 mmHg TR Peak GR16.4 mmHg Left Ventricle The left ventricle is normal size. There is normal LV segmental wall motion. There is normal left radha tricular wall thickness. LVEF is 55-60%. The left ventricular diastolic function is normal. Right Ventricle The right ventricle is normal size. The right ventricular systolic function is normal. Atria The left atrium size is normal. The right atrium size is normal. Aortic Valve The aortic valve is normal in structure. No aortic regurgitation is present. No aortic valvular veget ation noted. There is no aortic valvular stenosis. Mitral Valve The mitral valve is normal in structure. There is no mitral valve regurgitation noted. There are no m itral valve vegetation noted. There is no mitral valve stenosis. Tricuspid Valve The tricuspid valve is normal in structure. There is trace tricuspid valve regurgitation noted. There is no tricuspid valve vegetation. Pulmonic Valve The pulmonary valve is normal in structure. There is no pulmonic valvular regurgitation. There is no pulmonic valve vegetaion. Great Vessels The aortic root is normal in size. The IVC is normal in size and collapses >50% with inspiration. Pericardium There is no pericardial effusion. Conclusion LVEF is 55-60%. There is normal LV segmental wall motion. The right ventricular systolic function is normal. There is no pericardial effusion.
[2025-04-16] VITALS: BP 100/67; PULSE 78; RESP 18; TEMP 97.5
[2025-04-16 04:00] VITALS: BP 117/71; PULSE 66; RESP 18; TEMP 97.8
[2025-04-16 08:00] VITALS: O2SAT 99
[2025-04-16 08:11] VITALS: BP 104/71; PULSE 69; RESP 20; TEMP 97.8
--- NOTE | 2025-04-16 08:47 | CONS ---
INFECTIOUS DISEASE CONSULTATION DATE OF SERVICE: 04/15/2025 REQUESTING PHYSICIAN: Emiliana Ly NP REASON FOR CONSULTATION: Fever. HISTORY OF PRESENT ILLNESS: This is a 50-year-old male with a history of diabetes mellitus, hypertension, and obesity, presenting to the hospital with fever and chills. Symptoms started 2 days prior to presentation. The patient also complained of some abdominal pain. The patient's T-max since admission was 98.2. CPK found to be elevated. Denies history fall or trauma. CT of the abdomen has been done, which shows feculent material and distended with gallstones. No nausea or vomiting. Denies weight loss or night sweats. No sick contact. No recent travel. The patient has a dog at home, but denies bite. No dysuria or urinary frequency. Influenza antigen came back negative. The patient has no rashes or itchiness. Denies neck pain or neck swelling. No photophobia or diplopia. PAST MEDICAL HISTORY: * Diabetes mellitus. * Hypertension. * Obesity. PAST SURGICAL HISTORY: Denies. ALLERGIES: Denies. CURRENT MEDICATIONS: Reviewed. SOCIAL HISTORY: No alcohol, tobacco or illicit drug use. Lives with . FAMILY HISTORY: Noncontributory. REVIEW OF SYSTEMS: Greater than 10 systems were reviewed, negative except as documented above. PHYSICAL EXAMINATION: GENERAL: A young male, awake. VITAL SIGNS: Temperature 98.2, pulse 91, respiratory rate 16, BP 108/65. EYES: No icterus. Pupils equal and reactive. HENT: No oral thrush seen. Moist oral mucosa. NECK: Supple. No JVD or thyromegaly. LUNGS: Good air entry. No rales, no rhonchi. CARDIOVASCULAR: S1, S2, regular. No murmur heard. ABDOMEN: Obese, soft, nontender. Bowel sound is present. CENTRAL NERVOUS SYSTEM: Awake, alert, oriented x 3. No focal deficits. SKIN: No rashes, no itchiness. LYMPHATIC: No peripheral lymphadenopathy. BACK: No deformity, no pressure ulcer. MUSCULOSKELETAL: No joint swelling, erythema, or tenderness. LABORATORY DATA: CPK 564. Sodium 138, potassium 4.0, BUN 13, creatinine 0.9. WBC 5.7, hemoglobin 12.1, platelets 175. Urinalysis is negative. Influenza antigen is negative. RADIOLOGY: CT abdomen feculent material and distended with gallstones. Chest x-ray is unremarkable. ASSESSMENT: A 50-year-old male presenting with fever. CURRENT PROBLEMS: Include: * Possible viral syndrome. * Diabetes mellitus. * Rhabdomyolysis. * Hypertension. PLAN: * Obtain CT chest without contrast. * Obtain gallbladder sonogram. * Continue IV fluid. * Continue antihypertensive. * Continue antidiabetic. * No antibiotic needed at this time. Thank you for allowing me to participate in the care of this patient. TID: [id number] RECEIPT: [id number]
--- NOTE | 2025-04-16 09:13 | HMCIMG ---
CT NONCONTRAST CHEST Comparison Study: none History: FEVER Technique: Helical CT of the chest without IV contrast at 5 mm collimation. Coronal and sagittal reformations also done. CT Dose Index (CTDI): 2.38 mGy Dose Length Product (DLP): 94.8 total mGy-cm Findings: The airway is intact. The trachea and major bronchi are unremarkable. The chest exam shows no pulmonary nodules or masses. No significant pulmonary parenchymal abnormalities are noted. No pulmonary infiltrates or mass lesions are seen. No pleural effusions are identified. There is no pneumothorax. There is no evidence of pneumomediastinum. The nonenhanced exam of the david and mediastinum is unremarkable. No evidence of hilar enlargement is seen. The aorta shows no aneurysmal dilatation or significant atheromatous calcification. No significant brachiocephalic vascular abnormalities are seen. The heart is unremarkable. It is not enlarged. No significant coronary arterial calcifications are seen. There is no pericardial effusion. The rib cage appears unremarkable. The soft tissues of the chest wall are unremarkable. The dorsal spine shows no significant abnormalities. IMPRESSION: NORMAL CT OF THE CHEST WITHOUT CONTRAST. This study was performed using dose reduction techniques to include automated exposure control and/or adjustment of the mA and/or kV according to patient size.
--- NOTE | 2025-04-16 09:55 | HMCIMG ---
HIDA scan INDICATION: fever, possible acute cholecystitis. TECHNIQUE: Patient was administered 6 mCi of technetium 99m Choletec IV and dynamic images of the abdomen were obtained over 2 hours. Patient was then given 1.7 mcg of CCK IV for gallbladder ejection fraction calculation. FINDINGS: There is rapid and homogeneous uptake of radiopharmaceutical by the liver, which shows normal size and shape. Activity in the gallbladder noted 13 minutes after injection of tracer. Normal hepatic clearance with activity in the small bowel. Gallbladder ejection fraction calculated at 92% (normal is > 35%). IMPRESSION: Normal ejection fraction. No evidence of gallbladder dyskinesia. No evidence of acute or chronic cholecystitis..
--- NOTE | 2025-04-16 10:12 | HMCIMG ---
Exam Type: US ABDOMINAL RUQ\E\LTD Clinical Information: DISTENDED GALLBLADDER Comparison: None Findings: The liver shows normal echogenicity and is otherwise unremarkable. The liver measures less than 16 cm in length. Doppler evaluation shows patent portal and hepatic veins. The gallbladder shows no significant abnormalities. Specifically, no calculi are seen. The gallbladder wall thickness is 2 mm. No bile duct dilatation is noted. The common bile duct measures 4 mm. The right kidney measures 12.7 x 4.6 cm. The right kidney is normal in size and echogenicity. No hydronephrosis or renal calculi are seen. There are no renal masses. The pancreas is unremarkable. IMPRESSION: Normal right upper quadrant abdominal ultrasound.
--- NOTE | 2025-04-16 10:24 | HMCIMG ---
MRI OF THE CERVICAL SPINE with and without GADOLINIUM Technique: Sagittal T1 and T2 FSE, Sagittal STIR and Sagittal proton density images were completed through the cervical spine. Axial T1, T2 and proton density images were also acquired. FINDINGS: There is straightening of the spine consistent with spasm. There is evidence of degenerative disc disease at C6-7 as noted below. No fractures or dislocations are identified. Vertebral body height and disc height is preserved at other levels. The bone marrow signal is normal for age. The spinal canal contents are preserved. The paraspinal muscles and other tissues show no significant abnormalities. Evaluation of the cervical spine by level: C1-C2: There is no spinal canal stenosis. No disc herniation or bulge is noted. There is no neural foraminal stenosis, impingement, or narrowing. C2-C3: There is no spinal canal stenosis. No disc herniation or bulge is noted. There is no neural foraminal stenosis, impingement, or narrowing. C3-C4: There is no spinal canal stenosis. No disc herniation or bulge is noted. There is no neural foraminal stenosis, impingement, or narrowing. C4-C5: There is no spinal canal stenosis. No disc herniation or bulge is noted. There is no neural foraminal stenosis, impingement, or narrowing. C5-C6: There is no spinal canal stenosis. No disc herniation or bulge is noted. There is no neural foraminal stenosis, impingement, or narrowing. C6-C7: There is no spinal canal stenosis. Left subarticular zone disc protrusion is seen causing left neural foraminal narrowing without impingement. C7-T1: There is no spinal canal stenosis. No disc herniation or bulge is noted. There is no neural foraminal stenosis, impingement, or narrowing. Impression: Cervical spasm . There is no spinal canal stenosis. Left subarticular zone disc protrusion is seen at C6-7 causing left neural foraminal narrowing without impingement. No abnormal enhancement after gadolinium administration.
--- NOTE | 2025-04-16 10:29 | HMCIMG ---
MRI dorsal spine with and without gadolinium History: paresthesia, dysesthesia Comparison: none Findings: The thoracic spine is well visualized. All pedicles and spinous processes are intact. No fracture or bony lesions are identified. The vertebral bodies are well aligned, and the disc spaces are normal. The visualized soft tissues are unremarkable. No abnormal enhancement after gadolinium administration. IMPRESSION: NORMAL THORACIC SPINE.
--- NOTE | 2025-04-16 10:32 | PN ---
[facility] PROGRESS NOTE Date of Service: Apr 16, 2025 Time of Service: 10:29 SUBJECTIVE: Mr. Dsuoza is a 50-year-old male with a history of a DM, HTN, and HDL who presented to [facility] for evaluation of low-grade fever, chills, abdominal pain and nausea onset Sunday of last week. The patient reported he had periumbilical abdominal pain, but that has gone away. The pain was spent around the abdomen to the back, starting around the belly button. The patient reported that he is now having burning/sunburn/numbness sensation ascending upward from lower extremity to the abdomen to nipple line. The patient reported he initially was seen at urgent care this weekend, was swab, and was told everything was negative. The 2nd visit was two at tele health visit yesterday which was not conclusive. The 3rd visit was two the primary care doctor earlier today who did a CBC and told him that it was not bacterial, that it was viral, and if he fell worse to go to the emergency room. Patient reported that his PCP gave him a shot of Toradol for the burning which helped bring very little relief. He reported that his last A1c was 5.5. The patient denied vomiting, incontinence, or changing urination, chest pain, shortness of breath, WBCs WNL. Remarkable lab results: CK 674, C-reactive protein 52.5 Hemoglobin 11.0, hematocrit 31.0, RBC 3.49, neut % 79.6, lymph% 10.9, Lymph # 0.8. Chloride 100, GFR 92, glucose 114, EKG: Sinus rhythm, HR 85 bpm. No checks x-ray, swabs to review. ED administered NS 1 L bolus and Solu-Medrol 125. ED consulted Dr. Pieter Hubbard, neurologist from [facility] neuro consult. Neurology gave him an NIH of one for mild to moderate sensory loss. Recommendations were given the fever and sensory level of numbness would consider [employer]GER infection or inflammation. Recommended acyclovir empiric [employer]GER coverage for now. MRI C/T/L w/wo pending. LP after MRI. Consider antibiotic coverage if any worsening. ED provider requested patient be admitted with the diagnosis of acute febrile illness, dysesthesia affecting both sides of the body, rhabdomyolysis, and hyperglycemia. The patient evaluated at bedside in room number ED 13. The was at bedside. The patient's breathing was even, unlabored, in no distress, appeared comfortable. The patient oriented times four, no neurological deficits noted. The patient reported that he has been over exerting himself with moving things around. He reported that the Solu-Medrol given in ED helped with the symptoms. 04/15 the patient has been seen and examined, comfortably in bed, he is getting IV antibiotics at the time of my visit, alert oriented x3, he denies dizziness, no headache, no blurry vision, not neck pain, denies chest pain, denied shortness a breath, no nausea, no vomiting, no abdominal pain, no diarrhea, no constipation, no melena, no hematochezia, no hematemesis, no hematuria, no dysuria. the patient admitted to the medical floor, hemodynamically stable, afebrile, saturating normal on room air. CBC with normal WBC, hemoglobin 12.1, hematocrit 35.0, platelet count of 175. Sodium level 138, potassium 4.0, BUN of 13, creatinine 0.9, hemoglobin A1c 5.6, lactic acid 1.3, total CK 564. Toxicology screen negative. Urinalysis negative. Serology test negative. CT of the abdomen shows fecal material in the colon, gallbladder distended. Echocardiogram pending. Lumbar x-ray normal. HIDA scan and surgical consultation requested as the patient with distended gallbladder. Infectious disease consulted, we will follow input and recommendation. 04/16 patient remains admitted to the medical floor, scheduled for cervical, thoracic and lumbar MRI. Echocardiogram done, LVEF 55-60%, normal LV segmental wall motion, right ventricular systolic function normal, no pericardial effusion. CT chest unremarkable. HIDA scan normal ejection fraction, no evidence of gallbladder dyskinesia, no evidence of acute or chronic cholecystitis. Ultrasound of the abdomen normal. Patient has remained afebrile, hemodynamically stable. Blood culture so far negative. ID input noted and appreciated, possible viral syndrome. No antibiotic needed at this time. REVIEW OF SYSTEMS 12-point ROS reviewed with the patient. All pertinent positives mentioned above. Otherwise negative, noncontributory, non-pertinent. PHYSICAL EXAM GENERAL APPEARANCE: The patient is awake, alert, and oriented, in no acute cardiopulmonary distress. NEUROLOGICAL: Cranial nerves II-XII grossly intact. Motor is 5/5 in bilateral upper and lower extremities proximal to distal. No sensory deficits. HEENT: Face is symmetric. Pupils are equal and reactive. Extraocular movements are intact. NECK: Supple. No JVD. No thyromegaly. No submental, submandibular, pre- /postauricular, occipital or supraclavicular lymphadenopathy. CHEST: Normal chest expansion. No Telemetry. LUNGS: Absence of any rales, rhonchi or any wheezing. CARDIOVASCULAR: Regular. S1 and S2 normal. No appreciable rubs, murmurs or gallops. ABDOMEN: Soft, nontender, and nondistended. There is no rebound, voluntary guarding, or rigidity. : Deferred. No Urena. EXTREMITIES: Non-edematous and not cyanotic. No clubbing. Good capillary refill. SKIN: No skin breakdown. Vital Signs (last 8hr) Date Time Temp Pulse Resp B/P (MAP) Pulse Ox O2 Delivery O2 Flow Rate FiO2 04/16/25 08:11 97.9 69 20 104/71 99 Room Air 04/16/25 04:00 97.9 66 18 117/71 100 Room Air LABS: Laboratory: Test 04/16/25 06:11 04/15/25 03:44 04/14/25 22:38 04/14/25 19:15 Range/Units Whole Blood Glucose 94 70-110 MG/DL White Blood Count 5.7 4.8-10.8 K/uL Red Blood Count 3.85 L 4.50-6.20 MIL/uL Hemoglobin 12.1 L 14.0-18.0 g/dL Hematocrit 35.0 L 42-54 % Mean Corpuscular Volume 90.9 79-99 fL Mean Corpuscular Hemoglobin 31.4 27.0-33.0 pg Mean Corpuscular Hemoglobin Concent 34.6 32.0-36.0 g/dL Red Cell Distribution Width 12.1 11.0-15.5 % Platelet Count 175 130-400 K/uL Mean Platelet Volume 9.4 7.5-10.5 fL Nucleated Red Blood Cells 0.0 0.0-0.19 % Erythrocyte Sedimentation Rate 60 H 0-20 MM/HR Sodium Level 138 136-145 mmol/L Potassium Level 4.0 3.5-5.1 mmol/L Chloride Level 102 101-111 mmol/L Carbon Dioxide Level 30 21-32 mmol/L Blood Urea Nitrogen 13 7-18 mg/dL Creatinine 0.9 0.5-1.3 mg/dL Glomerular Filtration Rate Calc 104 >90 mL/min Random Glucose 134 H 70-105 mg/dL Hemoglobin A1c 5.6 4.0-6.0 % Estimated Average Glucose (eAG) 114 70-126 mg/dL Total Calcium 8.9 8.5-10.1 mg/dL Phosphorus Level 2.5 2.5-4.9 mg/dL Magnesium Level 2.20 1.80-2.40 mg/dL Total Bilirubin 0.4 0.2-1.0 mg/dL Aspartate Amino Transf (AST/SGOT) 35 10-37 U/L Alanine Aminotransferase (ALT/SGPT) 55 12-78 U/L Alkaline Phosphatase 52 50-136 U/L Total Creatine Kinase 564 *H 21-232 U/L Total Protein 7.7 6.0-8.3 g/dL Albumin 3.4 L 3.5-5.0 g/dL Vitamin B12 Level 1778 H 193-986 pg/mL Folic Acid (LAB) 17.30 2-20 ng/mL Thyroid Stimulating Hormone (TSH) 0.40 0.36-3.74 uIU/mL Influenza Type A Antigen Negative For Type A NEGATIVE Influenza Type B Antigen Negative For Type B NEGATIVE SARS-CoV-2, RNA, NAAT NEGATIVE SARS CoV-2 NEGATIVE Group A Streptococcus Rapid negative NEGATIVE Direct Bilirubin 0.1 0.0-0.3 mg/dL Troponin I High Sensitivity < 4 L 4-75 ng/L Test 04/14/25 16:56 04/14/25 16:48 04/14/25 16:15 Range/Units Urine Color LIGHT-YELLOW YELLOW Urine Appearance CLEAR CLEAR Urine pH 6.0 5.0-8.0 Urine Specific [place] 1.015 1.001-1.031 Urine Protein NEGATIVE NEGATIVE mg/dL Urine Glucose (UA) NEGATIVE NEGATIVE mg/dL Urine Ketones NEGATIVE NEGATIVE mg/dL Urine Occult Blood NEGATIVE NEGATIVE Urine Nitrate NEGATIVE NEGATIVE Urine Bilirubin NEGATIVE NEGATIVE mg/dL Urine Urobilinogen 0.2 0.2-1.0 mg/dL Urine Leukocyte Esterase NEGATIVE NEGATIVE Ulices/uL Urine Opiates Screen NEGATIVE NEGATIVE Urine Barbiturates Screen NEGATIVE NEGATIVE Urine Phencyclidine Screen NEGATIVE NEGATIVE Urine Amphetamines Screen NEGATIVE NEGATIVE Urine Benzodiazepines Screen NEGATIVE NEGATIVE Urine Cocaine Screen NEGATIVE NEGATIVE Urine Marijuana (THC) Screen NEGATIVE NEGATIVE Immature Granulocyte % (Auto) 0.3 0-1 % Neutrophils (%) (Auto) 79.6 H 40.0-77.0 % Lymphocytes (%) (Auto) 10.9 L 21.0-51.0 % Monocytes (%) (Auto) 8.8 3.0-13.0 % Eosinophils (%) (Auto) 0.3 0.0-8.0 % Basophils (%) (Auto) 0.1 0.0-5.0 % Neutrophils # (Auto) 5.5 1.8-7.7 K/uL Lymphocytes # (Auto) 0.8 L 1.0-4.8 K/uL Monocytes # (Auto) 0.6 0.1-1.0 K/uL Eosinophils # (Auto) 0.02 0.00-0.70 K/uL Basophils # (Auto) 0.01 0.00-0.20 K/uL Absolute Immature Granulocyte (auto 0.02 0-1 K/uL Lactic Acid Level 1.3 0.8-2.5 mmol/L C-Reactive Protein, Quantitative 52.50 H 0.5-3.0 mg/L Brucella Total Antibody Agglutin NEGATIVE NEGATIVE Paratyphoid A Antibody NEGATIVE NEGATIVE Paratyphoid B Antibody NEGATIVE NEGATIVE Proteus OX-19 Antibody 1:20 NEGATIVE Typhoid H Antibody NEGATIVE NEGATIVE Typhoid O Antibody NEGATIVE NEGATIVE Current Medications Medications (Trade) Dose Ordered Sig/Luis Route PRN Reason Start Time Stop Time Status Last Admin Dose Admin Acetaminophen (TYLenol 325MG TAB) 650 mg Q6H PRN PO FEVER/MILD PAIN LEVEL 1-3 04/14/25 20:30 05/14/25 20:29 Acetaminophen (TYLenol 650MG SUPPOSITORY) 650 mg Q6H PRN RC FEVER / MILD PAIN 1-3 IF NPO 04/14/25 20:30 05/14/25 20:29 Acyclovir Sodium 840 mg/Sodium Chloride 250 ml @ 250 mls/hr Q8H IV 04/15/25 06:00 05/14/25 21:59 04/16/25 05:51 250 MLS/HR Acyclovir Sodium 850 mg/Sodium Chloride 250 ml @ 250 mls/hr Q8H IV 04/14/25 22:00 04/15/25 05:26 DC 04/14/25 22:15 250 MLS/HR Dexamethasone Sodium Phosphate (dexaMETHasone 4MG/ML 1ML VIAL) 4 mg DAILY IV 04/15/25 09:00 05/15/25 08:59 04/15/25 09:27 4 MG Dextrose (D50w) 50 ml AD PRN IV HYPOGLYCEMIA PROTOCOL 04/14/25 23:00 05/14/25 22:59 Docusate Sodium (COLace 100MG CAP) 100 mg BID PRN PO CONSTIPATION 04/14/25 20:30 05/14/25 20:29 Doxycycline Hyclate 250 ml @ 125 mls/hr Q12H IV 04/14/25 23:00 04/24/25 22:59 04/16/25 00:02 125 MLS/HR Enoxaparin Sodium (Lovenox) 40 mg DAILY SQ 04/15/25 09:00 05/15/25 08:59 04/15/25 09:28 40 MG Famotidine (Pepcid 20mg Tab) 20 mg BID PO 04/14/25 21:00 05/14/25 20:59 04/15/25 21:35 20 MG Glucagon (Glucagon 1mg Kit) 1 mg AD PRN IM HYPOGLYCEMIA PROTOCOL 04/14/25 23:00 05/14/25 22:59 Insulin Human Regular (humuLIN R 100 UNIT/ML 3ML) INSULIN SLIDING SCAL... ACHS SQ 04/14/25 21:00 05/14/25 20:59 Labetalol HCl (TRANdate 20MG SYG) 10 mg Q2H PRN IV SBP GREATER THAN 160 04/14/25 20:30 05/14/25 20:29 Lactated Ringer's 1,000 ml @ 200 mls/hr Q5H IV 04/14/25 20:30 05/14/25 20:29 04/16/25 04:33 200 MLS/HR Lactulose (Constulose 20gm/ 30ml Udcup) 20 gm Q6H PRN PO CONSTIPATION 04/14/25 20:30 05/14/25 20:29 Magnesium Sulfate 50 ml @ 0 mls/hr PROTOCOL PRN IV MAGNESIUM PROTOCOL 04/14/25 23:00 05/14/25 22:59 Ondansetron HCl (zoFRAN 4MG INJ) 4 mg Q6H PRN IVP NAUSEA/VOMITING 04/14/25 20:30 05/14/25 20:29 Pharmacy Profile Note (Pharmacy Communication) 1 each STAT MISC 04/14/25 21:15 04/15/25 07:06 DC Potassium Chloride 100 ml @ 100 mls/hr AD PRN IV POTASSIUM PROTOCOL 04/14/25 23:00 05/14/25 22:59 Potassium Chloride (K-Dur/Klor-Con 20meq) 20 meq AD PRN PO POTASSIUM PROTOCOL 04/14/25 23:00 05/14/25 22:59 Potassium Chloride (KCl 10% Elixir 20meq/15ml) 20 meq AD PRN PO POTASSIUM PROTOCOL 04/14/25 23:00 05/14/25 22:59 Temazepam (restORIL 15 MG CAP) 15 mg HS PRN PO INSOMNIA/SLEEP 04/14/25 20:30 05/14/25 20:29 DIAGNOSTICS / RADIOLOGY: [ ] ASSESSMENT: Acute febrile illness, POA, of unknown origin Dysesthesia affecting both sides of body, POA Sensory level of numbness, POA Rhabdomyolysis, POA Elevated neut %, lymph%, Lymph #, POA, rule out bacterial and viral infection, inflammation, blood disorder, autoimmune conditions Elevated C-reactive protein Anemia Hypochloremia Acute kidney injury, GFR 92 Diabetes mellitus with hyperglycemia Distended gallbladder PLAN: patient remains admitted to the medical floor, scheduled for cervical, thoracic and lumbar MRI. Echocardiogram done, LVEF 55-60%, normal LV segmental wall motion, right ventricular systolic function normal, no pericardial effusion. CT chest unremarkable. HIDA scan normal ejection fraction, no evidence of gallbladder dyskinesia, no evidence of acute or chronic cholecystitis. Ultrasound of the abdomen normal. Patient has remained afebrile, hemodynamically stable. Blood culture so far negative. ID input noted and appreciated, possible viral syndrome. No antibiotic needed at this time. NEURO: Minimize central acting medications as possible. Fall Precautions. Well lighted room through the day and minimize interruptions through the night to prevent acute delirium. PULMONARY: Supplemental 02 as needed BiPAP as necessary, for respiratory distress Titrate Fio2 to keep Spo2 > or = 90% DuoNebs and CPT as needed IS hourly while awake for pulmonary hygiene prn Out of bed to chair as tolerated Maintain aspiration precautions at all times CARDIOVASCULAR: Follow hemodynamics. Vital signs per facility protocol GI & NUTRITION: Continue nutritional support Aspirations precautions Prokinetic agents and laxatives as needed KIDNEYS & ELECTROLYTES: Strict monitoring of intake and output Daily weights Avoid nephrotoxic agents Monitor electrolytes and replace as needed Goal urine output of 30mL/hr or 0.5mL/kg/hr Medications to be dosed according to renal function. Avoid contrast if possible ENDOCRINE: Maintain blood glucose between 100-180 at all times. Insulin sliding scale for blood glucose management Hypoglycemia and hyperglycemia protocol in place INFECTIOUS DISEASE: Trend temperature, WBC and procalcitonin level Follow cultures, deescalate antibiotics as soon as possible. Panculture if new onset fever HEMATOLOGY & COAGULATION: Monitor H&H. Keep Hgb > 7 Transfuse 1 unit of PRBC for Hgb < 7 Transfuse 1 pack of platelets of platelets < 20, 000 Watch for any signs and symptoms of bleeding SKIN: Pressure ulcer prevention per facility protocol Specialty mattress as needed ORTHO/REHAB Continue PT/OT PRN: MEDICATIONS Tylenol 650 mg po every 4 hrs for fever zofran 4 mg IV every 6 hrs for n/v Hydralazine 5 mg IV every 4 hrs systolic pressure > 160 bowel regiment: lactulose 20 gm PO BID PRN constipation Supportive measures: Continue GI and DVT prophylaxis Disposition: Pending improvement in clinical condition All questions answered time spent: > 35 min GABRIELLE QUEZADA MD Apr 16, 2025 10:32
--- NOTE | 2025-04-16 10:32 | HMCIMG ---
MRI of the lumbar spine with and without gadolinium Technique: Sagittal T1 and T2 FSE, Sagittal STIR and Sagittal proton density images were completed through the lumbosacral spine. Axial T1, T2 and proton density images were also acquired. FINDINGS: Examination shows adequate alignment of the vertebral bodies of the lumbar spine. No fractures or dislocations are identified. Vertebral body height and disc height is preserved at all levels. The bone marrow signal is normal for age. The spinal canal contents are preserved. The conus terminates at a normal level at T12 to L2. The paraspinal muscles and other tissues show no significant abnormalities. Evaluation of the lumbar spine by level: T12-L1: There is no spinal canal stenosis. No disc herniation or bulge is noted. There is no neural foraminal stenosis, impingement, or narrowing. L1-L2: There is no spinal canal stenosis. No disc herniation or bulge is noted. There is no neural foraminal stenosis, impingement, or narrowing. L2-L3: There is no spinal canal stenosis. No disc herniation or bulge is noted. There is no neural foraminal stenosis, impingement, or narrowing. L3-L4: There is no spinal canal stenosis. No disc herniation or bulge is noted. There is no neural foraminal stenosis, impingement, or narrowing. L4-L5: There is no spinal canal stenosis. No disc herniation or bulge is noted. There is no neural foraminal stenosis, impingement, or narrowing. L5-S1: There is no spinal canal stenosis. Mild posterior disc bulge is noted. There is no neural foraminal stenosis, impingement, or narrowing. Impression: Mild posterior disc bulge L5-S1. No canal stenosis. No nerve root impingement. No neural foramina narrowing. No abnormal enhancement after gadolinium administration
[2025-04-16 11:10] LABS: HEMATOCRIT 35.3 % (42-54); MEAN CORPUSCULAR HEMOGLOBIN 31.6 pg (27.0-33.0); MEAN CORPUSCULAR HGB CONC 35.4 g/dL (32.0-36.0); MEAN CORPUSCULAR VOLUME 89.1 fL (79-99); RED BLOOD CELL COUNT(AUTO) 3.96 MIL/uL (4.50-6.20); RED CELL DISTRIBUTION WIDTH 12.3 % (11.0-15.5)
[2025-04-16 11:18] LABS: CREATININE 0.9 mg/dL (0.5-1.3); POTASSIUM 3.2 mmol/L (3.5-5.1)
[2025-04-16 11:22] LABS: ALBUMIN 3.5 g/dL (3.5-5.0); BILIRUBIN,TOTAL 0.4 mg/dL (0.2-1.0); MAGNESIUM 1.9 mg/dL (1.80-2.40); TOTAL PROTEIN, SERUM 7.4 g/dL (6.0-8.3)
--- NOTE | 2025-04-16 11:30 | CONS ---
GENERAL SURGERY CONSULTATION NOTE DATE OF CONSULTATION: Apr 16, 2025 TIME OF CONSULTATION: 11:30 CONSULTING SERVICE: Brisa Morrison MD REQUESTING PHYSICAIN: [ ] REASON FOR CONSULTATION: [ ] HISTORY OF PRESENT ILLNESS: [ ] PAST MEDICAL HISTORY: [ ] PAST SURGICAL HISTORY: [ ] FAMILY HISTORY: [ ] SOCIAL HISTORY: [ ] Current Medications Medications (Trade) Dose Ordered Sig/Luis Route Start Time Stop Time Status Last Admin Dose Admin Acyclovir Sodium 840 mg/Sodium Chloride 250 ml @ 250 mls/hr Q8H IV 04/15/25 06:00 05/14/25 21:59 04/16/25 05:51 250 MLS/HR Acyclovir Sodium 850 mg/Sodium Chloride 250 ml @ 250 mls/hr Q8H IV 04/14/25 22:00 04/15/25 05:26 DC 04/14/25 22:15 250 MLS/HR Dexamethasone Sodium Phosphate (dexaMETHasone 4MG/ML 1ML VIAL) 4 mg DAILY IV 04/15/25 09:00 05/15/25 08:59 04/15/25 09:27 4 MG Doxycycline Hyclate 250 ml @ 125 mls/hr Q12H IV 04/14/25 23:00 04/24/25 22:59 04/16/25 00:02 125 MLS/HR Enoxaparin Sodium (Lovenox) 40 mg DAILY SQ 04/15/25 09:00 05/15/25 08:59 04/15/25 09:28 40 MG Famotidine (Pepcid 20mg Tab) 20 mg BID PO 04/14/25 21:00 05/14/25 20:59 04/15/25 21:35 20 MG Insulin Human Regular (humuLIN R 100 UNIT/ML 3ML) INSULIN SLIDING SCAL... 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 PHYSICAL EXAMINATION: GENERAL: [Patient is lying comfortably in bed, not in any obvious distress.] HEAD: [Normal with no signs of head trauma.] EYES: [Not pale not jaundiced afebrile to touch.] ENT: [ Normal.] NECK: [Supple,no tenderness,no lymphadenopathy,no masses,no thyromegaly ,no bruits, no JVD.] LUNGS: [Clear breath sounds bilaterally. No wheezes, rales, or rhonchi.] HEART: [Regular rate and rhythm. Normal S1 and S2, without murmurs, rub or gallop.] VASC: [No edema. Peripheral pulses normal and equal in all extremities.] ABD: [Bowel sounds present,soft, RUQ tender, no masses, no organomegaly.] : [Normal, no suprapubic tenderness.] LYMPH: [No lymphadenopathy noted.] EXT: [ Warm soft, non tender.] SKIN: [ No rashes or lesions.] NEURO: [ Awake Alert and oriented x3.] Vital Signs (last 8hr) Date Time Temp Pulse Resp B/P (MAP) Pulse Ox O2 Delivery O2 Flow Rate FiO2 04/16/25 08:11 97.9 69 20 104/71 99 Room Air 04/16/25 04:00 97.9 66 18 117/71 100 Room Air LABORATORY: [ ] Hematology Labs: Test 04/16/25 11:06 04/15/25 03:44 04/14/25 16:48 Range/Units White Blood Count 10.0 4.8-10.8 K/uL Red Blood Count 3.96 L 4.50-6.20 MIL/uL Hemoglobin 12.5 L 14.0-18.0 g/dL Hematocrit 35.3 L 42-54 % Mean Corpuscular Volume 89.1 79-99 fL Mean Corpuscular Hemoglobin 31.6 27.0-33.0 pg Mean Corpuscular Hemoglobin Concent 35.4 32.0-36.0 g/dL Red Cell Distribution Width 12.3 11.0-15.5 % Platelet Count 205 130-400 K/uL Mean Platelet Volume 9.1 7.5-10.5 fL Nucleated Red Blood Cells 0.0 0.0-0.19 % Erythrocyte Sedimentation Rate 60 H 0-20 MM/HR Immature Granulocyte % (Auto) 0.3 0-1 % Neutrophils (%) (Auto) 79.6 H 40.0-77.0 % Lymphocytes (%) (Auto) 10.9 L 21.0-51.0 % Monocytes (%) (Auto) 8.8 3.0-13.0 % Eosinophils (%) (Auto) 0.3 0.0-8.0 % Basophils (%) (Auto) 0.1 0.0-5.0 % Neutrophils # (Auto) 5.5 1.8-7.7 K/uL Lymphocytes # (Auto) 0.8 L 1.0-4.8 K/uL Monocytes # (Auto) 0.6 0.1-1.0 K/uL Eosinophils # (Auto) 0.02 0.00-0.70 K/uL Basophils # (Auto) 0.01 0.00-0.20 K/uL Absolute Immature Granulocyte (auto 0.02 0-1 K/uL Chemistry Labs: Test 04/16/25 11:06 04/16/25 06:11 04/15/25 03:44 04/14/25 19:15 Range/Units Sodium Level 137 136-145 mmol/L Potassium Level 3.2 L 3.5-5.1 mmol/L Chloride Level 101 101-111 mmol/L Carbon Dioxide Level 29 21-32 mmol/L Blood Urea Nitrogen 14 7-18 mg/dL Creatinine 0.9 0.5-1.3 mg/dL Glomerular Filtration Rate Calc 104 >90 mL/min Random Glucose 107 H 70-105 mg/dL Total Calcium 8.8 8.5-10.1 mg/dL Magnesium Level 1.90 1.80-2.40 mg/dL Total Bilirubin 0.4 0.2-1.0 mg/dL Aspartate Amino Transf (AST/SGOT) 26 10-37 U/L Alanine Aminotransferase (ALT/SGPT) 47 12-78 U/L Alkaline Phosphatase 57 50-136 U/L Total Creatine Kinase 201 # 21-232 U/L Total Protein 7.4 6.0-8.3 g/dL Albumin 3.5 3.5-5.0 g/dL Whole Blood Glucose 94 70-110 MG/DL Hemoglobin A1c 5.6 4.0-6.0 % Estimated Average Glucose (eAG) 114 70-126 mg/dL Phosphorus Level 2.5 2.5-4.9 mg/dL Vitamin B12 Level 1778 H 193-986 pg/mL Folic Acid (LAB) 17.30 2-20 ng/mL Thyroid Stimulating Hormone (TSH) 0.40 0.36-3.74 uIU/mL Direct Bilirubin 0.1 0.0-0.3 mg/dL Troponin I High Sensitivity < 4 L 4-75 ng/L Test 04/14/25 16:48 Range/Units Lactic Acid Level 1.3 0.8-2.5 mmol/L C-Reactive Protein, Quantitative 52.50 H 0.5-3.0 mg/L DIAGNOSTICS / RADIOLOGY: [Copy/Paste Echos/Imaging Report here] ASSESSMENT: [] PLAN: BRISA MORRISON MD Apr 16, 2025 11:30
--- NOTE | 2025-04-16 11:54 | PN ---
INFECTIOUS DISEASE PROGRESS NOTE Date of Service: Apr 16, 2025 SUBJECTIVE: This is a 50-year-old male patient who was seen and examined at bedside in room 428. Patient is afebrile this morning, temperature is 97.9 and a normal WBC of 10.0. Denying nausea or vomiting. During rounding today patient is pending a thoracic, lumbar and cervical spine MRI. From Infectious Disease standpoint patient is cleared to be discharged on no antibiotics if the MRI findings are negative. PHYSICAL EXAM EYES: Anicteric. Pupils equal and reactive. HENT: No oral thrush seen, moist Oral mucosa. NECK: Supple, no JVD or thyromegaly. LUNGS: Good air entry. No rales, no rhonchi. CARDIOVASCULAR: S1, S2 regular. No murmur heard. ABDOMEN: Soft, non tender, bowel sounds present, no organomegaly. CENTRAL NERVOUS SYSTEM: Awake, alert, oriented x 3. SKIN: No rashes, no swelling. LYMPHATICS: No peripheral lymphadenopathy MUSCULOSKELETAL: No joint swelling, erythema or tenderness. EXTREMITIES: No cyanosis or clubbing BACK: No deformity, no pressure ulcer. GENITOURINARY: No dysuria or hematuria. Vital Sign (Last 12 Hours) 04/16/25 04/16/25 04/16/25 00:00 04:00 08:11 Temp 97.5 97.9 97.9 Pulse 78 66 69 Resp 18 18 20 B/P (MAP) 100/67 117/71 104/71 Pulse Ox 98 100 99 O2 Delivery Room Air Room Air Room Air Intake & Output (last 24hrs) 04/15/25 04/15/25 04/16/25 15:00 23:00 07:00 Intake Total 750.0 ml Balance 750.0 ml LABS: Laboratory: Test 04/16/25 11:06 04/16/25 06:11 04/15/25 03:44 04/14/25 22:38 Range/Units White Blood Count 10.0 4.8-10.8 K/uL Red Blood Count 3.96 L 4.50-6.20 MIL/uL Hemoglobin 12.5 L 14.0-18.0 g/dL Hematocrit 35.3 L 42-54 % Mean Corpuscular Volume 89.1 79-99 fL Mean Corpuscular Hemoglobin 31.6 27.0-33.0 pg Mean Corpuscular Hemoglobin Concent 35.4 32.0-36.0 g/dL Red Cell Distribution Width 12.3 11.0-15.5 % Platelet Count 205 130-400 K/uL Mean Platelet Volume 9.1 7.5-10.5 fL Nucleated Red Blood Cells 0.0 0.0-0.19 % Sodium Level 137 136-145 mmol/L Potassium Level 3.2 L 3.5-5.1 mmol/L Chloride Level 101 101-111 mmol/L Carbon Dioxide Level 29 21-32 mmol/L Blood Urea Nitrogen 14 7-18 mg/dL Creatinine 0.9 0.5-1.3 mg/dL Glomerular Filtration Rate Calc 104 >90 mL/min Random Glucose 107 H 70-105 mg/dL Total Calcium 8.8 8.5-10.1 mg/dL Magnesium Level 1.90 1.80-2.40 mg/dL Total Bilirubin 0.4 0.2-1.0 mg/dL Aspartate Amino Transf (AST/SGOT) 26 10-37 U/L Alanine Aminotransferase (ALT/SGPT) 47 12-78 U/L Alkaline Phosphatase 57 50-136 U/L Total Creatine Kinase 201 # 21-232 U/L Total Protein 7.4 6.0-8.3 g/dL Albumin 3.5 3.5-5.0 g/dL Whole Blood Glucose 94 70-110 MG/DL Erythrocyte Sedimentation Rate 60 H 0-20 MM/HR Hemoglobin A1c 5.6 4.0-6.0 % Estimated Average Glucose (eAG) 114 70-126 mg/dL Phosphorus Level 2.5 2.5-4.9 mg/dL Vitamin B12 Level 1778 H 193-986 pg/mL Folic Acid (LAB) 17.30 2-20 ng/mL Thyroid Stimulating Hormone (TSH) 0.40 0.36-3.74 uIU/mL Influenza Type A Antigen Negative For Type A NEGATIVE Influenza Type B Antigen Negative For Type B NEGATIVE SARS-CoV-2, RNA, NAAT NEGATIVE SARS CoV-2 NEGATIVE Group A Streptococcus Rapid negative NEGATIVE Test 04/14/25 19:15 04/14/25 16:56 04/14/25 16:48 04/14/25 16:15 Range/Units Direct Bilirubin 0.1 0.0-0.3 mg/dL Troponin I High Sensitivity < 4 L 4-75 ng/L Urine Color LIGHT-YELLOW YELLOW Urine Appearance CLEAR CLEAR Urine pH 6.0 5.0-8.0 Urine Specific [place] 1.015 1.001-1.031 Urine Protein NEGATIVE NEGATIVE mg/dL Urine Glucose (UA) NEGATIVE NEGATIVE mg/dL Urine Ketones NEGATIVE NEGATIVE mg/dL Urine Occult Blood NEGATIVE NEGATIVE Urine Nitrate NEGATIVE NEGATIVE Urine Bilirubin NEGATIVE NEGATIVE mg/dL Urine Urobilinogen 0.2 0.2-1.0 mg/dL Urine Leukocyte Esterase NEGATIVE NEGATIVE Ulices/uL Urine Opiates Screen NEGATIVE NEGATIVE Urine Barbiturates Screen NEGATIVE NEGATIVE Urine Phencyclidine Screen NEGATIVE NEGATIVE Urine Amphetamines Screen NEGATIVE NEGATIVE Urine Benzodiazepines Screen NEGATIVE NEGATIVE Urine Cocaine Screen NEGATIVE NEGATIVE Urine Marijuana (THC) Screen NEGATIVE NEGATIVE Immature Granulocyte % (Auto) 0.3 0-1 % Neutrophils (%) (Auto) 79.6 H 40.0-77.0 % Lymphocytes (%) (Auto) 10.9 L 21.0-51.0 % Monocytes (%) (Auto) 8.8 3.0-13.0 % Eosinophils (%) (Auto) 0.3 0.0-8.0 % Basophils (%) (Auto) 0.1 0.0-5.0 % Neutrophils # (Auto) 5.5 1.8-7.7 K/uL Lymphocytes # (Auto) 0.8 L 1.0-4.8 K/uL Monocytes # (Auto) 0.6 0.1-1.0 K/uL Eosinophils # (Auto) 0.02 0.00-0.70 K/uL Basophils # (Auto) 0.01 0.00-0.20 K/uL Absolute Immature Granulocyte (auto 0.02 0-1 K/uL Lactic Acid Level 1.3 0.8-2.5 mmol/L C-Reactive Protein, Quantitative 52.50 H 0.5-3.0 mg/L Brucella Total Antibody Agglutin NEGATIVE NEGATIVE Paratyphoid A Antibody NEGATIVE NEGATIVE Paratyphoid B Antibody NEGATIVE NEGATIVE Proteus OX-19 Antibody 1:20 NEGATIVE Typhoid H Antibody NEGATIVE NEGATIVE Typhoid O Antibody NEGATIVE NEGATIVE ASSESSMENT: Possible viral syndrome. Abdominal pain. Rhabdomyolysis. Diabetes mellitus. Hypertension. PLAN: Patient is pending a thoracic, lumbar and cervical spine MRI No antibiotics needed at this time. Continue IV fluids. Continue anti diabetics. Continue pain management. This case was reviewed and discussed with my supervising physician and the above assessment and plan was formulated and agreed upon. ATTESTATION BY PHYSICIAN I have seen and examined the patient. I reviewed the documentation, medical decision making, and treatment plan as noted by the mid-level provider above. I agree with the findings and plan of care. PEDRO PABLO JAMES MD, [facility] Apr 16, 2025 11:54
--- NOTE | 2025-04-16 12:00 | PN ---
GENERAL SURGERY PROGRESS NOTE DATE OF SERVICE: Apr 16, 2025 TIME OF SERVICE: 11:59 PROBLEM LISTS: [ ] INTERVAL HISTORY: [ ] PHYSICAL EXAMINATION: GENERAL: [Patient is lying comfortably in bed, not in any obvious distress.] HEAD: [Normal with no signs of head trauma.] EYES: [Not pale not jaundiced afebrile to touch.] ENT: [ Normal.] NECK: [Supple,no tenderness,no lymphadenopathy,no masses,no thyromegaly ,no bruits, no JVD.] LUNGS: [Clear breath sounds bilaterally. No wheezes, rales, or rhonchi.] HEART: [Regular rate and rhythm. Normal S1 and S2, without murmurs, rub or gallop.] VASC: [No edema. Peripheral pulses normal and equal in all extremities.] ABD: [Bowel sounds present,soft, RUQ tender, no masses, no organomegaly.] : [Normal, no suprapubic tenderness.] LYMPH: [No lymphadenopathy noted.] EXT: [ Warm soft, non tender.] SKIN: [ No rashes or lesions.] NEURO: [ Awake Alert and oriented x3.] LABORATORY: [ ] Hematology Labs: Test 04/16/25 11:06 04/15/25 03:44 04/14/25 16:48 Range/Units White Blood Count 10.0 4.8-10.8 K/uL Red Blood Count 3.96 L 4.50-6.20 MIL/uL Hemoglobin 12.5 L 14.0-18.0 g/dL Hematocrit 35.3 L 42-54 % Mean Corpuscular Volume 89.1 79-99 fL Mean Corpuscular Hemoglobin 31.6 27.0-33.0 pg Mean Corpuscular Hemoglobin Concent 35.4 32.0-36.0 g/dL Red Cell Distribution Width 12.3 11.0-15.5 % Platelet Count 205 130-400 K/uL Mean Platelet Volume 9.1 7.5-10.5 fL Nucleated Red Blood Cells 0.0 0.0-0.19 % Erythrocyte Sedimentation Rate 60 H 0-20 MM/HR Immature Granulocyte % (Auto) 0.3 0-1 % Neutrophils (%) (Auto) 79.6 H 40.0-77.0 % Lymphocytes (%) (Auto) 10.9 L 21.0-51.0 % Monocytes (%) (Auto) 8.8 3.0-13.0 % Eosinophils (%) (Auto) 0.3 0.0-8.0 % Basophils (%) (Auto) 0.1 0.0-5.0 % Neutrophils # (Auto) 5.5 1.8-7.7 K/uL Lymphocytes # (Auto) 0.8 L 1.0-4.8 K/uL Monocytes # (Auto) 0.6 0.1-1.0 K/uL Eosinophils # (Auto) 0.02 0.00-0.70 K/uL Basophils # (Auto) 0.01 0.00-0.20 K/uL Absolute Immature Granulocyte (auto 0.02 0-1 K/uL Chemistry Labs: Test 04/16/25 11:06 04/16/25 06:11 04/15/25 03:44 04/14/25 19:15 Range/Units Sodium Level 137 136-145 mmol/L Potassium Level 3.2 L 3.5-5.1 mmol/L Chloride Level 101 101-111 mmol/L Carbon Dioxide Level 29 21-32 mmol/L Blood Urea Nitrogen 14 7-18 mg/dL Creatinine 0.9 0.5-1.3 mg/dL Glomerular Filtration Rate Calc 104 >90 mL/min Random Glucose 107 H 70-105 mg/dL Total Calcium 8.8 8.5-10.1 mg/dL Magnesium Level 1.90 1.80-2.40 mg/dL Total Bilirubin 0.4 0.2-1.0 mg/dL Aspartate Amino Transf (AST/SGOT) 26 10-37 U/L Alanine Aminotransferase (ALT/SGPT) 47 12-78 U/L Alkaline Phosphatase 57 50-136 U/L Total Creatine Kinase 201 # 21-232 U/L Total Protein 7.4 6.0-8.3 g/dL Albumin 3.5 3.5-5.0 g/dL Whole Blood Glucose 94 70-110 MG/DL Hemoglobin A1c 5.6 4.0-6.0 % Estimated Average Glucose (eAG) 114 70-126 mg/dL Phosphorus Level 2.5 2.5-4.9 mg/dL Vitamin B12 Level 1778 H 193-986 pg/mL Folic Acid (LAB) 17.30 2-20 ng/mL Thyroid Stimulating Hormone (TSH) 0.40 0.36-3.74 uIU/mL Direct Bilirubin 0.1 0.0-0.3 mg/dL Troponin I High Sensitivity < 4 L 4-75 ng/L Test 04/14/25 16:48 Range/Units Lactic Acid Level 1.3 0.8-2.5 mmol/L C-Reactive Protein, Quantitative 52.50 H 0.5-3.0 mg/L DIAGNOSTICS / RADIOLOGY: [Copy/Paste Echos/Imaging Report here] ASSESSMENT: [] Fever resolved No abdominal symptoms PLAN: BRISA YOUNG MD Apr 16, 2025 12:00
[2025-04-16 12:08] VITALS: BP 108/67; PULSE 80; RESP 16; TEMP 97.6
[2025-04-16] MEDS ORDERED: GADOTERATE MEGLUMINE 10 MMOL/20 ML VIAL IV ONE (16:03)
[2025-04-16 16:07] VITALS: BP 113/65; PULSE 79; RESP 18; TEMP 97.8
[2025-04-16] MEDS: PoTASSium chloRIDE 20MEQ ER 20 MEQ ERTAB PO ONE (16:24)
--- NOTE | 2025-04-16 17:08 | CONS ---
CONSULTATION NOTE Date of Service: Apr 16, 2025 Reason for Consultation: evaluation of burning abdominal pain Requesting Physician: Hospitalist HISTORY OF PRESENT ILLNESS: Mr. Dsouza, a 50-year-old right-handed male with a history of diabetes type 2 and high cholesterol, presents with a chief complaint of skin pain around his navel that started approximately 2 weeks ago. The patient reports that the pain began around his navel and radiated outward by the middle of the week, extending up his leg on both sides. He describes the pain as an "extreme burning" sensation, likening it to an "extreme sunburn." The pain was bilateral, affecting both sides of his abdomen and legs, and was primarily located in the front with some involvement in the back. Mr. Dsouza also developed a fever along with the pain. He denies the presence of any vesicles or redness on his skin. 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 However, he emphasizes that he has never experienced anything like this before. Mr. Dsouza was admitted to the hospital two days ago when the pain was still extremely severe. Since then, his condition has improved significantly. He reports that the pain has decreased from severe to "just a little bit sensitive," rating his current pain level as 2 out of 10. The patient denies any other medical problems beyond his known diagnoses of diabetes type 2 and high cholesterol. 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 HEAD/FACE: No signs of trauma. EENT: Denies eye pain, blurred vision, double vision, or light sensitivity. RESPIRATORY: Denies shortness of breath, cough, wheezing CARDIOVASCULAR: Denies chest pain, palpitation, syncope GASTROINTESTINAL/ABDOMINAL: Denies abdominal pain, constipation, diarrhea, nausea or vomiting GENITOURINARY: Denies dysuria or hematuria. MUSCULOSKELETAL: Denies joint pain, tenderness, or trauma. INTEGUMENTARY: Denies rash or itchiness NEUROLOGICAL/PSYCH: Abdominal burning pain. PAST MEDICAL HISTORY: as above. PAST SURGICAL HISTORY: none contributory PAST SOCIAL HISTORY: No tobacco, ETOH rec drug abuse FAMILY HISTORY: non contributory Coded Allergies: No Known Drug Allergies (Unverified Allergy, Unknown, 04/14/25) PHYSICAL EXAM EYES: Anicteric. Pupils equal and reactive. HENT: No oral thrush seen, moist Oral mucosa NECK: Supple, no JVD or thyromegaly. LUNGS: Good air entry. No rales, no rhonchi. CARDIOVASCULAR: S1, S2 regular. No murmur heard. ABDOMEN: Soft, non tender, bowel sounds present, no organomegaly CENTRAL NERVOUS SYSTEM: Awake, alert, oriented x 3. No focal deficits. SKIN: No rashes, no swelling. LYMPHATICS: No peripheral lymphadenopathy MUSCULOSKELETAL: burning pain EXTREMITIES: No cyanosis or clubbing BACK: No deformity, no pressure ulcer. GENITOURINARY: No dysuria or hematuria Vital Sign (Last 24 Hours) 04/15/25 04/16/25 20:00 16:07 Temp 97.9 Pulse 79 Resp 18 B/P (MAP) 113/65 Pulse Ox 97 O2 Delivery Room Air O2 Flow Rate 0 FiO2 21 Intake & Output (last 24hrs) 04/15/25 04/15/25 04/16/25 15:00 23:00 07:00 Intake Total 750.0 ml Balance 750.0 ml LABS: Laboratory: Test 04/16/25 16:01 04/16/25 11:06 04/15/25 03:44 04/14/25 22:38 Range/Units Whole Blood Glucose 124 H 70-110 MG/DL White Blood Count 10.0 4.8-10.8 K/uL Red Blood Count 3.96 L 4.50-6.20 MIL/uL Hemoglobin 12.5 L 14.0-18.0 g/dL Hematocrit 35.3 L 42-54 % Mean Corpuscular Volume 89.1 79-99 fL Mean Corpuscular Hemoglobin 31.6 27.0-33.0 pg Mean Corpuscular Hemoglobin Concent 35.4 32.0-36.0 g/dL Red Cell Distribution Width 12.3 11.0-15.5 % Platelet Count 205 130-400 K/uL Mean Platelet Volume 9.1 7.5-10.5 fL Nucleated Red Blood Cells 0.0 0.0-0.19 % Sodium Level 137 136-145 mmol/L Potassium Level 3.2 L 3.5-5.1 mmol/L Chloride Level 101 101-111 mmol/L Carbon Dioxide Level 29 21-32 mmol/L Blood Urea Nitrogen 14 7-18 mg/dL Creatinine 0.9 0.5-1.3 mg/dL Glomerular Filtration Rate Calc 104 >90 mL/min Random Glucose 107 H 70-105 mg/dL Total Calcium 8.8 8.5-10.1 mg/dL Magnesium Level 1.90 1.80-2.40 mg/dL Total Bilirubin 0.4 0.2-1.0 mg/dL Aspartate Amino Transf (AST/SGOT) 26 10-37 U/L Alanine Aminotransferase (ALT/SGPT) 47 12-78 U/L Alkaline Phosphatase 57 50-136 U/L Total Creatine Kinase 201 # 21-232 U/L Total Protein 7.4 6.0-8.3 g/dL Albumin 3.5 3.5-5.0 g/dL Erythrocyte Sedimentation Rate 60 H 0-20 MM/HR Hemoglobin A1c 5.6 4.0-6.0 % Estimated Average Glucose (eAG) 114 70-126 mg/dL Phosphorus Level 2.5 2.5-4.9 mg/dL Vitamin B12 Level 1778 H 193-986 pg/mL Folic Acid (LAB) 17.30 2-20 ng/mL Thyroid Stimulating Hormone (TSH) 0.40 0.36-3.74 uIU/mL Influenza Type A Antigen Negative For Type A NEGATIVE Influenza Type B Antigen Negative For Type B NEGATIVE SARS-CoV-2, RNA, NAAT NEGATIVE SARS CoV-2 NEGATIVE Group A Streptococcus Rapid negative NEGATIVE Test 04/14/25 19:15 Range/Units Direct Bilirubin 0.1 0.0-0.3 mg/dL Troponin I High Sensitivity < 4 L 4-75 ng/L DIAGNOSTICS / RADIOLOGY: MRI cervical, thoracic and lumbar: no enhancement lesions. No major herniations . ASSESSMENT / PLAN: Mr. Dsouza, a 50-year-old male with a history of type 2 diabetes and hypercholesterolemia, presented with bilateral abdominal neuropathic pain and fever that started 2 weeks ago. Neuropathic pain, likely shingles (Herpes Zoster) Assessment: Patient presented with bilateral neuropathic pain in the abdominal region, described as a burning sensation similar to an extreme sunburn, which started 2 weeks ago. The pain was initially localized around the navel and later radiated up and down both sides of the abdomen, predominantly in the front with some involvement in the back. Associated symptoms included fever. No visible lauri h or vesicles were observed. 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 Given the patient's age (50), history of diabetes (which increases risk), recent stress (typical trigger), and characteristic neuropathic pain distribution, shingles (Herpes Zoster) is the most likely diagnosis, despite the atypical bilateral presentation. The condition has significantly improved since admission 2 days ago, with current pain rated as 2/10. Plan: - Switch from IV acyclovir to oral valacyclovir 1000 mg PO TID for 10 days - Start gabapentin 100 mg PO BID for 10 days for pain management - Order HIV test to rule out immunocompromise - Continue inpatient treatment for one more day, then discharge if stable - Follow up as needed if symptoms worsen or new concerns arise Type 2 Diabetes Mellitus Assessment: Patient has a known history of type 2 diabetes. No acute issues related to diabetes were reported or observed Hypercholesterolemia Assessment: Patient has a known history of high cholesterol. No acute issues related to hypercholesterolemia were reported or observed Hypokalemia Assessment: Laboratory results showed low potassium levels of 3.2 mmol/L. This finding was incidental and not related to the patient's presenting symptoms. Elevated inflammatory markers Assessment: Laboratory results showed elevated CRP (52.50 mg/L) and ESR (60 mm/hr), consistent with an ongoing inflammatory process, likely related to the s uspected viral infection (shingles). Thank you for your consultation. Follow up as outpatient. I will sign off. PANDA BERGERON MD Apr 16, 2025 17:08
[2025-04-16 17:33] LABS: HIV 1&2 ANTIBODY Non-Reactive (Negative); HIV-1 p24 Antigen Non-Reactive (Negative)
[2025-04-16] MEDS ORDERED: GABA-529 PO (18:16)
--- NOTE | 2025-04-16 18:52 | NUR ---
PATIENT IS DISCHARGED. IV TAKEN OUT WITH CATHETER INTACT. EDUCATION GIVEN TO PATIENT ON NEW MEDICATIONS TO TAKE.
[2025-04-16] MEDS ORDERED: GABApentin 100 MG CAPSULE PO SCH (21:00)
--- NOTE | 2025-04-17 08:15 | DS ---
Discharge Summary Hospital Course Summary: Date of service 04/16/2025 Mr. Dsouza is a 50-year-old male with a history of a DM, HTN, and HDL who presented to [facility] ED April 16, 2025 for evaluation of low-grade fever, chills, abdominal pain and nausea onset Sunday of last week. The patient reported he had periumbilical abdominal pain, but that has gone away. The pain was spent around the abdomen to the back, starting around the belly button. The patient reported that he is now having burning/sunburn/numbness sensation ascending upward from lower extremity to the abdomen to nipple line. The patient reported he initially was seen at urgent care this weekend, was swab, and was told everything was negative. The 2nd visit was two at tele health visit yesterday which was not conclusive. The 3rd visit was two the primary care doctor earlier today who did a CBC and told him that it was not bacterial, that it was viral, and if he fell worse to go to the emergency room. Patient reported that his PCP gave him a shot of Toradol for the burning which helped bring very little relief. He reported that his last A1c was 5.5. The patient denied vomiting, incontinence, or changing urination, chest pain, shortness of breath, WBCs WNL. Remarkable lab results: CK 674, C-reactive protein 52.5 Hemoglobin 11.0, hematocrit 31.0, RBC 3.49, neut % 79.6, lymph% 10.9, Lymph # 0.8. Chloride 100, GFR 92, glucose 114, EKG: Sinus rhythm, HR 85 bpm. No checks x-ray, swabs to review. ED administered NS 1 L bolus and Solu-Medrol 125. ED consulted Dr. Pieter Hubbard, neurologist from [facility] neuro consult. Neurology gave him an NIH of one for mild to moderate sensory loss. Recommendations were given the fever and sensory level of numbness would conside r [employer] infection or inflammation. Recommended acyclovir empiric [employer] coverage for now. MRI C/T/L w/wo pending. LP after MRI. Consider antibiotic coverage if any worsening. ED provider requested patient be admitted with the diagnosis of acute febrile illness, dysesthesia affecting both sides of the body, rhabdomyolysis, and hyperglycemia. The patient evaluated at bedside in room number ED 13. The was at bedside. The patient's breathing was even, unlabored, in no distress, appeared comfortable. The patient oriented times four, no neurological deficits noted. The patient reported that he has been over exerting himself with moving things around. He reported that the Solu-Medrol given in ED helped with the symptoms. 04/15 the patient has been seen and examined, comfortably in bed, he is getting IV antibiotics at the time of my visit, alert oriented x3, he denies dizziness, no headache, no blurry vision, not neck pain, denies chest pain, denied shortness a breath, no nausea, no vomiting, no abdominal pain, no diarrhea, no constipation, no melena, no hematochezia, no hematemesis, no hematuria, no dysuria. the patient admitted to the medical floor, hemodynamically stable, afebrile, saturating normal on room air. CBC with normal WBC, hemoglobin 12.1, hematocrit 35.0, platelet count of 175. Sodium level 138, potassium 4.0, BUN of 13, creatinine 0.9, hemoglobin A1c 5.6, lactic acid 1.3, total CK 564. Toxicology screen negative. Urinalysis negative. Serology test negative. CT of the abdomen shows fecal material in the colon, gallbladder distended. Echocardiogram pending. Lumbar x-ray normal. HIDA scan and surgical consu ltation requested as the patient with distended gallbladder. Infectious disease consulted, we will follow input and recommendation. 04/16 patient remains admitted to the medical floor, scheduled for cervical, thoracic and lumbar MRI. Echocardiogram done, LVEF 55-60%, normal LV segmental wall motion, right ventricular systolic function normal, no pericardial effusion. CT chest unremarkable. HIDA scan normal ejection fraction, no evidence of gallbladder dyskinesia, no evidence of acute or chronic cholecyst itis. Ultrasound of the abdomen normal. Patient has remained afebrile, hemodynamically stable. Blood culture so far negative. ID input noted and appreciated, possible viral syndrome. No antibiotic needed at this time. Results of MRI of the neck cervical spasm, no spinal canal stenosis, left subarticular zone disc protrusion C6-7 causing left neural foraminal narrowing without impingement. Thoracic and lumbar MRI unremarkable. Total CK within normal range. The patient was evaluated by neurologist, neuropathic pain, likely shingles (herpes zoster), recommended: - Switch from IV acyclovir to oral valacyclovir 1000 mg PO TID for 10 days - Start gabapentin 100 mg PO BID for 10 days for pain management - Order HIV test to rule out immunocompromise - Continue inpatient treatment for one more day, then discharge if stable - Follow up as needed if symptoms worsen or new concerns arise PHYSICAL EXAM GENERAL APPEARANCE: The patient is awake, alert, and oriented, in no acute cardiopulmonary distress. NEUROLOGICAL: Cranial nerves II-XII grossly intact. Motor is 5/5 in bilateral upper and lower extremities proximal to distal. No sensory deficits. HEENT: Face is symmetric. Pupils are equal and reactive. Extraocular movements are intact. NECK: Supple. No JVD. No thyromegaly. No submental, submandibular, pre- /postauricular, occipital or supraclavicular lymphadenopathy. CHEST: Normal chest expansion. No Telemetry. LUNGS: Absence of any rales, rhonchi or any wheezing. CARDIOVASCULAR: Regular. S1 and S2 normal. No appreciable rubs, murmurs or gallops. ABDOMEN: Soft, nontender, and nondistended. There is no rebound, voluntary guarding, or rigidity. : Deferred. No Urena. EXTREMITIES: Non-edematous and not cyanotic. No clubbing. Good capillary refill. SKIN: No skin breakdown. Clinical Allergist(s): Neurology, and Infectious Disease Assessment/Plan: Diagnosis Neuropathic pain, likely shingles (herpes zoster) Acute febrile illness, POA, of unknown origin Dysesthesia affecting both sides of body, POA Sensory level of numbness, POA Mild acute Rhabdomyolysis, POA Elevated neut %, lymph%, Lymph #, POA, rule out bacterial and viral infection, inflammation, blood disorder, autoimmune conditions Elevated C-reactive protein Anemia Hypokalemia resolved Acute kidney injury, GFR 92 Diabetes mellitus with hyperglycemia Distended gallbladder acute cholecystitis ruled out Discharge Instructions: The patient to be discharged home today, to follow with primary care physician as an outpatient, prescription sent to the pharmacy. Patient advised to return to the hospital if his condition changes, patient agreed with plan and understood the information provided. Home Medications: Reported Medications Gabapentin (Gabapentin) 100 Mg Capsule, 100 MG PO BID, CAP 04/16/25 Tirzepatide (Mounjaro) 10 Mg/0.5 Ml Pen.injctr, 10 MG SQ QWEEK 04/14/25 Atorvastatin Calcium (Atorvastatin Calcium) 20 Mg Tablet, 1 TAB PO HS for 30 Days, #30 TAB 0 Refills 04/14/25 Time spent arranging discharge: 31-60 minutes GABRIELLE QUEZADA MD Apr 17, 2025 08:15
[2025-04-17] MEDS ORDERED: [UNRECOGNIZED DRUG - CODE] PO (08:17)
== END 2025-04-16 19:00 | disposition home or self-care (01) ==
LOC: EDH 16:11 → INTOOBSV 19:48 → EDHIP 19:48 → 4DH 23:50
PROVIDERS: ADMIT Internal Medicine; ATTEND Internal Medicine
DX: M62.82 Rhabdomyolysis (principal); M79.2 Neuralgia and neuritis, unspecified; Z20.822 Contact with and (suspected) exposure to COVID-19; R20.8 Other disturbances of skin sensation; R79.82 Elevated C-reactive protein (CRP); R20.0 Anesthesia of skin; N17.9 Acute kidney failure, unspecified; D64.9 Anemia, unspecified; E11.65 Type 2 diabetes mellitus with hyperglycemia; K82.8 Other specified diseases of gallbladder; R10.33 Periumbilical pain; R14.0 Abdominal distension (gaseous); E87.8 Other disorders of electrolyte and fluid balance, not elsewhere classified; R50.9 Fever, unspecified; I10 Essential (primary) hypertension; E78.00 Pure hypercholesterolemia, unspecified; Z79.899 Other long term (current) drug therapy
CPT/HCPCS: 99285; 74176; 96365; 71045; 87635; 96366 ×4; 96375 ×2; 82550 ×3; 80076; 84484; 80048; 80305; 85025; 87040 ×2; 87880; 87804 ×2; 82948 ×7; 83605; 86000 ×6; 86140; 81003; 36415 ×3; 72100; 93005; 87641; 93306; 78227; 71250; 76705; 96372 ×2; 83036; 84443; 83735 ×2; 84100; 80053 ×2; 85027 ×2; 85651; 82607; 82746; 93356; 72156; 96361; 96376; 96368; 86701; 87390; 72158; 72157; J2919; J7120; J7030; J3490 ×4; J0133 ×4; J7050 ×4; J1100 ×2; J1650 ×2; A9537; G0378; A9575; 96367; 96374